=== PATIENT | female | born 1955 | race Caucasian/White ===

== ENCOUNTER 2018-09-01 19:23 | Inpatient (IN) | payer BC, OTHER ==
[2018-09-01 20:14] LABS: ABSOLUTE BASOPHILS # (AUTO) 0.1 10^3/uL (0.0-0.2); ABSOLUTE EOSINOPHILS # (AUTO) 0.1 10^3/uL (0.0-0.6); ABSOLUTE LYMPHOCYTES (AUTO) 1.3 10^3/uL (0.5-4.7); ABSOLUTE MONOCYTES (AUTO) 0.8 10^3/uL (0.1-1.4); ABSOLUTE NEUT (AUTO) 5.2 10^3/uL (1.7-8.2); BASOPHILS % (AUTO) 1.2 % (0-2); EOSINOPHILS % (AUTO) 0.8 % (0-6); HEMATOCRIT 40.2 % (36.0-47.0); HEMOGLOBIN 13.7 g/dL (12.0-15.5); MEAN CORPUSCULAR HEMOGLOBIN 28.2 pg (27.0-33.4); MEAN CORPUSCULAR HGB CONC 34.2 g/dL (32.0-36.0); MEAN CORPUSCULAR VOLUME 82 fl (80-97); MONOCYTES % (AUTO) 10.5 % (3-13); PLATELET COUNT 276 10^3/uL (150-450); RED BLOOD COUNT 4.87 10^6/uL (3.72-5.28); RED CELL DISTRIBUTION WIDTH 14.3 % (11.5-14.0); SEGMENTED NEUTROPHILS % (AUTO) 69.5 % (42-78); TOTAL CELLS COUNTED % (AUTO) 100 %; WHITE BLOOD COUNT 7.4 10^3/uL (4.0-10.5)
[2018-09-01 20:19] LABS: ALANINE AMINOTRANSFERASE 22 U/L (9-52); ALBUMIN 4.2 g/dL (3.5-5.0); ALKALINE PHOSPHATASE 90 U/L (38-126); ANION GAP 12 (5-19); ASPARTATE AMINO TRANSFERASE 14 U/L (14-36); BILIRUBIN,DIRECT 0.2 mg/dL (0.0-0.4); BILIRUBIN,TOTAL 0.5 mg/dL (0.2-1.3); BLOOD UREA NITROGEN 17 mg/dL (7-20); CALCIUM 9.1 mg/dL (8.4-10.2); CARBON DIOXIDE 28 mmol/L (22-30); CHLORIDE 104 mmol/L (98-107); CREATINE KINASE 59 U/L (30-135); GLUCOSE 116 mg/dL (75-110); SODIUM 143.7 mmol/L (137-145); TOTAL PROTEIN 6.9 g/dL (6.3-8.2)
--- NOTE | 2018-09-01 20:31 | RADIOLOGY REPORT (SQ) ---
EXAM DESCRIPTION: CT HEAD WITHOUT COMPLETED DATE/TIME: 09/01/2018 8:19 pm REASON FOR STUDY: confusion COMPARISON: None. TECHNIQUE: Axial images acquired through the brain without intravenous contrast. Images reviewed wi th bone, brain and subdural windows. Additional sagittal and coronal reconstructions were generated. Images stored on PACS. All CT scanners at this facility use dose modulation, iterative reconstruction, and/or weight based d osing when appropriate to reduce radiation dose to as low as reasonably achievable (ALARA). [facility]: Dose Right [facility]: CareDose [facility]: Dose Right [facility]: Teradose 4D [facility]: Smart Rontal Applications RADIATION DOSE: CT Rad equipment meets quality standard of care and radiation dose reduction techniq ues were employed. CTDIvol: 53.2 mGy. DLP: 937 mGy-cm. mGy. LIMITATIONS: None. FINDINGS: VENTRICLES: Normal size and contour. CEREBRUM: No masses. No hemorrhage. No midline shift. No evidence for acute infarction. Ill-define d small hypoattenuating area of the left frontal lobe. CEREBELLUM: No masses. No hemorrhage. No alteration of density. No evidence for acute infarction. EXTRAAXIAL SPACES: No fluid collections. No masses. ORBITS AND GLOBE: No intra- or extraconal masses. Normal contour of globe without masses. CALVARIUM: No fracture. PARANASAL SINUSES: No fluid or mucosal thickening. SOFT TISSUES: No mass or hematoma. OTHER: No other significant finding. IMPRESSION: Small hypoattenuating area of the left frontal lobe, concerning for acute infarct. EVIDENCE OF ACUTE STROKE: YES. LEFT MCA. COMMENT: This report was called to MARY COY MD at20:24 on 09/01/2018. Quality ID # [id number]: Final reports with documentation of one or more dose reduction techniques (e.g., Au tomated exposure control, adjustment of the mA and/or kV according to patient size, use of iterative reconstruction technique) TECHNICAL DOCUMENTATION: JOB ID: [id number] [employer]- All Rights Reserved Reading location - IP/workstation name: [email or web address]
--- NOTE | 2018-09-01 20:38 | RADIOLOGY REPORT (SQ) ---
EXAM DESCRIPTION: CHEST SINGLE VIEW COMPLETED DATE/TIME: 09/01/2018 8:29 pm REASON FOR STUDY: confusion COMPARISON: None. EXAM PARAMETERS: NUMBER OF VIEWS: One view. TECHNIQUE: Single frontal radiographic view of the chest acquired. RADIATION DOSE: NA LIMITATIONS: None. FINDINGS: LUNGS AND PLEURA: No opacities, masses or pneumothorax. No pleural effusion. MEDIASTINUM AND HILAR STRUCTURES: No masses. Contour normal. HEART AND VASCULAR STRUCTURES: Heart normal in size. Normal vasculature. BONES: No acute findings. HARDWARE: None in the chest. OTHER: No other significant finding. IMPRESSION: NO ACUTE RADIOGRAPHIC FINDING IN THE CHEST. TECHNICAL DOCUMENTATION: JOB ID: [id number] [employer]- All Rights Reserved Reading location - IP/workstation name: [email or web address]
[2018-09-01] MEDS ORDERED: ASPIRIN 81 MG TABLET, CHEWABLE PO ONE (20:49)
--- NOTE | 2018-09-01 20:56 | ER Document Report ---
ED General - General Chief Complaint: Trouble Talking Stated Complaint: CANT SPEAK Time Seen by Provider: 09/01/18 20:03 Cannot obtain history due to: Other - aphasia Notes: Patient is a 63-year-old female with no known chronic medical problems although does not follow with a physician who presents with 2 of her friends due to concerns of inability to speak for at least the past 2 days. History is extremely limited as the patient is a phasic. Family does not live locally. The 2 friends with her state that for the past 2 days she has been unable to speak and does seem confused or unable to understand what they are saying to her. They did elect to bring her to the hospital today for workup. No history of similar symptoms in the past. Nothing seems to improve or worsen her symptoms. TRAVEL OUTSIDE OF THE [place] IN LAST 30 DAYS: No - Related Data Allergies/Adverse Reactions: No Known Allergies Allergy (Unverified 09/01/18 20:16) Past Medical History - General Information source: Friend Cannot obtain history due to: Other - aphasia - Social History Smoking Status: Never Smoker Chew tobacco use (# tins/day): No Frequency of alcohol use: None Drug Abuse: None Lives with: Alone Family History: Reviewed & Not Pertinent Patient has suicidal ideation: No Patient has homicidal ideation: No Renal/ Medical History: Denies: Hx Peritoneal Dialysis Review of Systems - Review of Systems -: Yes ROS unobtainable due to patient's medical condition Physical Exam - Vital signs Vitals: Temp Pulse Resp BP Pulse Ox 98.9 F 95 18 173/013 H 96 09/01/18 19:29 09/01/18 19:29 09/01/18 19:29 09/01/18 19:29 09/01/18 19:29 Interpretation: Hypertensive Notes: PHYSICAL EXAMINATION: GENERAL: Resting in the bed comfortably. In no acute distress. HEAD: Atraumatic, normocephalic. EYES: Pupils equal round and reactive to light, extraocular movements intact, sclera anicteric, conjunctiva are normal. ENT: nares patent, oropharynx clear without exudates. Moist mucous membranes. NECK: Normal range of motion, supple without lymphadenopathy LUNGS: Breath sounds clear to auscultation bilaterally and equal. No wheezes rales or rhonchi. HEART: Regular rate and rhythm without murmurs ABDOMEN: Soft, nontender, normoactive bowel sounds. No guarding, no rebound. No masses appreciated. EXTREMITIES: Normal range of motion, no pitting or edema. No cyanosis. NEUROLOGICAL: Face symmetric. Tongue protrudes midline. Extraocular motions intact. Pupils are 2 mm and equally reactive. Dense expressive aphasia without any verbal content. Patient is unable to follow specific commands. For example she shows me her right hand as opposed to give me a thumbs up when commanded to do so. No apparent focal strength deficit although patient is again unable to follow through on comprehensive strength testing secondary to inability to comprehend instructions. PSYCH: Unable to assess secondary to aphasia SKIN: Warm, Dry, normal turgor, no rashes or lesions noted. Course - Re-evaluation Re-evalutation: 09/01/18 20:55 Patient presents with apparently 48 hours of inability to speak as well as apparent difficulty understanding what others are saying to her. On examination patient has no focal neurologic deficits but does have a dense expressive aphasia and partial receptive aphasia. She has difficulty following complex commands such as getting a thumbs up on her hand and said showing me her hand. She likewise cannot demonstrate a smile, instead opens her mouth or sticks out her tongue. She does not her head yes or no to questions although it is not entirely apparent whether or not she fully understands what is being said. CT scan of the head does show a stroke to the left frontal lobe which would account for her symptoms. The remainder of her labs are otherwise unremarkable. She is hypertensive although given that this is an acute ischemic stroke will allow for permissive hypertension. Patient has received a dose of aspirin here in the emergency department. I discussed this case with hospitalist on-call Dr. Torres who is accepted the patient for admission. - Vital Signs Vital signs: Temp Pulse Resp BP Pulse Ox 98.9 F 97 22 H 205/95 H 97 09/01/18 21:00 09/02/18 00:03 09/02/18 00:03 09/02/18 00:03 09/02/18 00:03 - Laboratory Result Diagrams: 09/01/18 19:55 09/01/18 19:55 Laboratory results interpreted by me: 09/01/18 09/01/18 09/01/18 19:27 19:55 19:55 RDW 14.3 H Glucose 116 H POC Glucose 114 H - Diagnostic Test Radiology reviewed: Image reviewed, Reports reviewed Radiology results interpreted by me: 09/02/18 01:39 Chest x-ray: No acute infiltrate or pneumothorax CT head: No acute intracranial bleed Discharge - Discharge Clinical Impression: Acute ischemic stroke, Aphasia Condition: Fair Disposition: ADMITTED INPATIENT Admitting Provider: Hospitalist Unit Admitted: Telemetry
--- NOTE | 2018-09-01 20:57 | EKG REPORT ---
SEVERITY:- ABNORMAL ECG - SINUS RHYTHM VENTRICULAR PREMATURE COMPLEX LEFT VENTRICULAR HYPERTROPHY : Confirmed by: Jero Granda MD 01-Sep-2018 20:57:12
[2018-09-01 21:33] LABS: VENOUS BLOOD BASE EXCESS 3.5 mmol/L; VENOUS BLOOD HCO3 28.9 mmol/L (20-32); VENOUS BLOOD PCO2 46.8 mmHg (35-63); VENOUS BLOOD PH 7.41 (7.30-7.42)
[2018-09-01] MEDS ORDERED: MAGNESIUM HYDROXIDE SUSP 30 ML UDCUP PO PRN (21:45)
[2018-09-01] MEDS ORDERED: ACETAMINOPHEN 325 MG TABLET PO PRN (21:45)
[2018-09-01] MEDS ORDERED: DEXTROSE 40% GEL 15 GM TUBE PO PRN ×2 (21:45)
[2018-09-01] MEDS ORDERED: GLUCAGON,HUMAN RECOMB 1 MG INJ SUBCUT PRN (21:45)
[2018-09-01] MEDS ORDERED: DEXTROSE 50%-WATER 25 GM/50 ML DISP.SYRIN IV PRN ×2 (21:45)
[2018-09-01] MEDS ORDERED: ATORVASTATIN CALCIUM 40 MG TABLET PO ONE (22:15)
[2018-09-01 22:19] LABS: APPEARANCE,URINE CLEAR; BILIRUBIN,URINE NEGATIVE (NEGATIVE); COLOR,URINE STRAW; GLUCOSE, URINE NEGATIVE (NEGATIVE); KETONES,URINE NEGATIVE (NEGATIVE); LEUKOCYTE ESTERASE,URINE NEGATIVE (NEGATIVE); NITRITE,URINE NEGATIVE (NEGATIVE); PROTEIN,URINE NEGATIVE (NEGATIVE); URINE SPECIFIC GRAVITY 1.012; UROBILINOGEN,URINE NEGATIVE mg/dL (<2.0)
[2018-09-01 22:22] LABS: INTERNATIONAL RATION (INR) 0.99; PROTHROMBIN TIME 13.5 SEC (11.4-15.4)
[2018-09-01 22:23] LABS: PARTIAL THROMBOPLASTIN TIME 33.7 SEC (23.5-35.8)
--- NOTE | 2018-09-01 23:06 | PDOC H&P ---
History of Present Illness Admission Date/PCP: 09/01/18 21:24 NONE Patient complains of: Problems speaking History of Present Illness: JON ANTONIO is a 63 year old female with no known medical conditions. Friend is at the bedside is the one giving me the information was the patient is unable to talk. Last time her friend spoke with her over the phone was last Sunday and the patient was at her regular state of health. Today friend called back and to all questions the patient was answering "ok", so she decided to call the [employer] department for a welfare check, when police arrived to her house she was answering all questions with the same word "ok", was decided to call EMS. Patient is ambulatory but unable to speak, follows commands and is evident that she can understand. Denies weakness, tingling or numbness on any extremity, denies vision problems, apparently patient has not been having any problems swallowing. Denies any history of a stroke in the past. Patient has been to a doctor a few months ago for an episode of acute bronchitis and she has been told that her blood pressure was high, upon arrival to our facility blood pressure was 205/95. The emergencyst stated that the patient has also receptive aphasia and had some difficulty with complex commands but to me she has been following every command properly and besides her frustration she feels to been unable to talk I did not find any receptive aphasia. CT scan of the head shows a stroke on the left frontal lobe. Patient will receive a dose of aspirin. Past Medical History Medical History: None Past Surgical History Past Surgical History: Reports: None Social History Smoking Status: Never Smoker Frequency of Alcohol Use: None Hx Recreational Drug Use: No Hx Prescription Drug Abuse: No Past Social History Note: Lives alone and her closest relative is her brother who lives out of the state. Her best friend is at the bedside. Family History Family History: Father and mother with history of cancer, both disease Parental Family History Reviewed: Yes - As above Children Family History Reviewed: Yes Sibling(s) Family History Reviewed.: Yes Medication/Allergy Allergies/Adverse Reactions: No Known Allergies Allergy (Unverified 09/01/18 20:16) Review of Systems Review of Systems: As outlined above, all others negative Physical Exam Vital Signs: Temp Pulse Resp BP Pulse Ox 93 22 H 205/95 H 97 09/01/18 19:36 09/01/18 19:36 09/01/18 19:36 09/01/18 19:36 Additional comments: General appearance: Well-developed, obese, alert and cooperative, and appears to be in no acute distress Head: Normocephalic Eyes: PEERL, EOMI, vision is grossly intact. Ears: External auditory canal and tympanic membranes clear, hearing grossly intact. Nose: No nasal discharge. Throat: Oral cavity and pharynx normal. No inflammation, swelling, exudate or lesions. Neck: Neck supple, nontender without lymphadenopathy, masses or thyromegaly. Cardiac: Normal S1 and S2. No S3, S4, systolic murmur present. Rhythm is regular. There is no cyanosis or pallor. Extremities are warm and well perfused. Capillary refill is less than 2 seconds. No carotid bruits. Lungs: Clear to auscultation and percussion without rales, rhonchi, wheezing or diminished breath sounds. Not using accessory muscles. Abdomen: Positive bowel sounds. Soft. Nondistended, nontender. No guarding or rebound. No masses. No hepatosplenomegaly Extremities: No significant deformity or joint abnormality. No edema. Peripheral pulses intact. No varicosities. Neurological: Cranial nerves II through XII grossly intact. Strength and sensation symmetric and intact throughout. Reflexes 2+ throughout. Expressive aphasia Skin: Skin normal color, texture and turgor with no lesions or eruptions, warm and dry. Psychiatric: The mental examination revealed the patient was oriented to person , place, and time. Results Laboratory Results: 09/01/18 22:02 Urine Color STRAW Urine Appearance CLEAR Urine pH 7.0 Ur Specific [place] 1.012 Urine Protein NEGATIVE Urine Glucose (UA) NEGATIVE Urine Ketones NEGATIVE Urine Blood NEGATIVE Urine Nitrite NEGATIVE Ur Leukocyte Esterase NEGATIVE Urine WBC (Auto) 1 Urine RBC (Auto) 1 EKG Comments: 09/01/18 09/01/18 09/01/18 19:27 19:55 19:55 WBC 7.4 RBC 4.87 Hgb 13.7 Hct 40.2 MCV 82 MCH 28.2 MCHC 34.2 RDW 14.3 H Plt Count 276 Seg Neutrophils % 69.5 Lymphocytes % 18.0 Monocytes % 10.5 Eosinophils % 0.8 Basophils % 1.2 Absolute Neutrophils 5.2 Absolute Lymphocytes 1.3 Absolute Monocytes 0.8 Absolute Eosinophils 0.1 Absolute Basophils 0.1 PT INR APTT VBG pH VBG pCO2 VBG HCO3 VBG Base Excess Sodium 143.7 Potassium 4.0 Chloride 104 Carbon Dioxide 28 Anion Gap 12 BUN 17 Creatinine 0.86 Est GFR ( Amer) > 60 Est GFR (Non-Af Amer) > 60 Glucose 116 H POC Glucose 114 H Lactic Acid Calcium 9.1 Total Bilirubin 0.5 Direct Bilirubin 0.2 AST 14 ALT 22 Alkaline Phosphatase 90 Creatine Kinase 59 Troponin I Total Protein 6.9 Albumin 4.2 Urine Color Urine Appearance Urine pH Ur Specific [place] Urine Protein Urine Glucose (UA) Urine Ketones Urine Blood Urine Nitrite Urine Bilirubin Urine Urobilinogen Ur Leukocyte Esterase Urine WBC (Auto) Urine RBC (Auto) Squamous Epi Cells Auto Urine Mucus (Auto) Urine Ascorbic Acid 09/01/18 09/01/18 09/01/18 19:55 20:38 21:18 WBC RBC Hgb Hct MCV MCH MCHC RDW Plt Count Seg Neutrophils % Lymphocytes % Monocytes % Eosinophils % Basophils % Absolute Neutrophils Absolute Lymphocytes Absolute Monocytes Absolute Eosinophils Absolute Basophils PT INR APTT VBG pH 7.41 VBG pCO2 46.8 VBG HCO3 28.9 VBG Base Excess 3.5 Sodium Potassium Chloride Carbon Dioxide Anion Gap BUN Creatinine Est GFR ( Amer) Est GFR (Non-Af Amer) Glucose POC Glucose Lactic Acid 1.2 Calcium Total Bilirubin Direct Bilirubin AST ALT Alkaline Phosphatase Creatine Kinase Troponin I 0.019 Total Protein Albumin Urine Color Urine Appearance Urine pH Ur Specific [place] Urine Protein Urine Glucose (UA) Urine Ketones Urine Blood Urine Nitrite Urine Bilirubin Urine Urobilinogen Ur Leukocyte Esterase Urine WBC (Auto) Urine RBC (Auto) Squamous Epi Cells Auto Urine Mucus (Auto) Urine Ascorbic Acid 09/01/18 09/01/18 21:18 22:02 WBC RBC Hgb Hct MCV MCH MCHC RDW Plt Count Seg Neutrophils % Lymphocytes % Monocytes % Eosinophils % Basophils % Absolute Neutrophils Absolute Lymphocytes Absolute Monocytes Absolute Eosinophils Absolute Basophils PT 13.5 INR 0.99 APTT 33.7 VBG pH VBG pCO2 VBG HCO3 VBG Base Excess Sodium Potassium Chloride Carbon Dioxide Anion Gap BUN Creatinine Est GFR ( Amer) Est GFR (Non-Af Amer) Glucose POC Glucose Lactic Acid Calcium Total Bilirubin Direct Bilirubin AST ALT Alkaline Phosphatase Creatine Kinase Troponin I Total Protein Albumin Urine Color STRAW Urine Appearance CLEAR Urine pH 7.0 Ur Specific [place] 1.012 Urine Protein NEGATIVE Urine Glucose (UA) NEGATIVE Urine Ketones NEGATIVE Urine Blood NEGATIVE Urine Nitrite NEGATIVE Urine Bilirubin NEGATIVE Urine Urobilinogen NEGATIVE Ur Leukocyte Esterase NEGATIVE Urine WBC (Auto) 1 Urine RBC (Auto) 1 Squamous Epi Cells Auto 1 Urine Mucus (Auto) RARE Urine Ascorbic Acid NEGATIVE EKG with normal sinus rhythm at 92 bpm, some PVCs. Impressions: Chest X-Ray 09/01/18 20:04 IMPRESSION: NO ACUTE RADIOGRAPHIC FINDING IN THE CHEST. Head CT 09/01/18 20:04 IMPRESSION: Small hypoattenuating area of the left frontal lobe, concerning for acute infarct. EVIDENCE OF ACUTE STROKE: YES. LEFT MCA. Assessment & Plan - Diagnosis (1) Acute ischemic stroke Is this a current diagnosis for this admission?: Yes Plan: Acute ischemic stroke in the left frontal area with expressive aphasia. Likely secondary to her uncontrolled hypertension, at this point she will have permissive hypertension, likely she will go home with BP meds, aspirin and statins which has been ordered. Telemetry monitoring, neuro checks every 4 hours, PT, OT and swallow evaluation. Carotid ultrasound and echocardiogram. Lipid panel and hemoglobin A1c in the morning. MRI of the brain. (2) Hypertension Is this a current diagnosis for this admission?: Yes Plan: Patient probably has had hypertension for a long time but as she does not follow with any primary care physician has not been diagnosis and patient has not been placed on any BP meds. For now permissive hypertension with IV labetalol as needed (3) DVT prophylaxis Is this a current diagnosis for this admission?: Yes Plan: Lovenox - Time Time Spent: 50 to 70 Minutes - Inpatient Certification Based on my medical assessment, after consideration of the patient's comorbidities, presenting symptoms, or acuity I expect that the services needed warrant INPATIENT care.: Yes Medical Necessity: Risk of Complication if Not Cared For in Hospital - Worsening viscera with incapacity - Plan Summary Plan Summary: Case discussed with patient and her friend at the bedside, agree with plan.
[2018-09-02] MEDS: NORMAL SALINE 1000 ML 1,000 ML IV PRN ×2 (00:23→14:42)
[2018-09-02] MEDS: ATORVASTATIN CALCIUM 40 MG TABLET PO SCH ×2 (00:23→21:11)
[2018-09-02 08:40] LABS: HEMATOCRIT 39.2 % (36.0-47.0); HEMOGLOBIN 13.4 g/dL (12.0-15.5); MEAN CORPUSCULAR HEMOGLOBIN 28.2 pg (27.0-33.4); MEAN CORPUSCULAR HGB CONC 34.2 g/dL (32.0-36.0); MEAN CORPUSCULAR VOLUME 82 fl (80-97); PLATELET COUNT 263 10^3/uL (150-450); RED BLOOD COUNT 4.76 10^6/uL (3.72-5.28); RED CELL DISTRIBUTION WIDTH 14.2 % (11.5-14.0)
[2018-09-02 08:55] LABS: ALANINE AMINOTRANSFERASE 17 U/L (9-52); ALBUMIN 3.7 g/dL (3.5-5.0); ALKALINE PHOSPHATASE 75 U/L (38-126); ANION GAP 10 (5-19); ASPARTATE AMINO TRANSFERASE 13 U/L (14-36); BILIRUBIN,DIRECT 0.2 mg/dL (0.0-0.4); BILIRUBIN,TOTAL 0.8 mg/dL (0.2-1.3); BLOOD UREA NITROGEN 14 mg/dL (7-20); CARBON DIOXIDE 28 mmol/L (22-30); CHLORIDE 105 mmol/L (98-107); CHOLESTEROL 144.26 mg/dL (0-200); GLUCOSE 107 mg/dL (75-110); POTASSIUM 4.1 mmol/L (3.6-5.0); SODIUM 143.1 mmol/L (137-145); TOTAL PROTEIN 6.1 g/dL (6.3-8.2); TRIGLYCERIDES 83 mg/dL (<150)
[2018-09-02 09:06] LABS: DIRECT LDL 93 mg/dL (<100)
--- NOTE | 2018-09-02 09:52 | RADIOLOGY REPORT (SQ) ---
EXAM DESCRIPTION: MRI HEAD WITHOUT COMPLETED DATE/TIME: 09/02/2018 9:36 am REASON FOR STUDY: Acute stroke COMPARISON: CT brain 09/01/2018 TECHNIQUE: Multiplanar imaging includes non-contrasted T1, T2, FLAIR, and diffusion with ADC map seq uences. Images stored on PACS. LIMITATIONS: None. FINDINGS: ANATOMY: No developmental anomalies. Normal vascular flow voids. Pituitary fossa normal. CSF SPACES: Normal in size and contour. No hemorrhage. CEREBRUM: Diffusion-weighted images are positive for a small cortical and subcortical white matter in farct over the left frontal cortex and subcortical white matter in the perisylvian region. No superi mposed acute hemorrhage. Minimal local mass effect with sulcal effacement. This is likely greater t yuan 24 hours old, given that this area was low-attenuation on CT 09/01/2018, 2012 hours. This finding was discussed with Dr. Roland, 0940 hours 09/02/2018. Remainder of the cerebral hemispheres demonstrate moderate small vessel ischemic change in the bifron rivka and biparietal white matter. No acute intracranial hemorrhage, mass effect, or midline shift. POSTERIOR FOSSA: Moderate pontine chronic small vessel ischemic change with increased signal on FLAIR images. No MR evidence of acute posterior fossa ischemic change or intracranial hemorrhage/ mass ef fect or midline shift. T2 weighted images demonstrate that the internal auditory canals and inner ea r structures are unremarkable. DIFFUSION IMAGING: Positive for small cortical and subcortical white matter infarct over the left fro ntal perisylvian region ORBITS: No masses. Globes normal. PARANASAL SINUSES: No fluid levels. Mucosa normal. OTHER: No other significant finding. IMPRESSION: Diffusion-weighted images are positive for small cortical and subcortical white matter i nfarct in the left patient greater than 24 hours old, low attenuation is seen in this area on prior C T last night. EVIDENCE OF ACUTE STROKE: YES COMMENT: Pertinent findings on the imaging study reported as a CRITICAL RESULT to DOMINIC BLACK at09:4 0 on 09/02/2018. Category of Critical Result: Positive DIFFUSION, ACUTE STROKE TECHNICAL DOCUMENTATION: JOB ID: [id number] [employer]- All Rights Reserved Reading location - IP/workstation name: [email or web address]
[2018-09-02] MEDS: ENOXAPARIN SODIUM INJ 40 MG/0.4 ML DISP.SYRIN SUBCUT SCH (10:49)
[2018-09-02] MEDS: PANTOPRAZOLE SODIUM 40 MG VIAL IV SCH (10:50)
[2018-09-02] MEDS: ASPIRIN 81 MG TABLET, ENT COATED PO SCH (10:50)
--- NOTE | 2018-09-02 14:15 | RADIOLOGY REPORT (SQ) ---
EXAM DESCRIPTION: CAROTID DOPPLER COMPLETED DATE/TIME: 09/02/2018 2:00 pm REASON FOR STUDY: CVA COMPARISON: None. TECHNIQUE: Grayscale ultrasound, Doppler velocity and spectra, and color Doppler images acquired of the extra-cranial carotid and vertebral arteries. Images stored on PACS. LIMITATIONS: None. FINDINGS: RIGHT CAROTID CCA Velocities: Within normal limits. ICA Velocities Peak systolic 104 cm m/s. End diastolic 36 cm/s. Proximal ICA/CCA peak systolic ratio 1.6 Spectra normal. No significant plaque. LEFT CAROTID CCA Velocities: Within normal limits. ICA Velocities Peak systolic 87 cm/s. End diastolic 31 cm/s. Proximal ICA/CCA peak systolic ratio 1.4. Spectra normal. No significant plaque. VERTEBRAL ARTERIES: Antegrade flow. Normal waveforms. SUBCLAVIAN ARTERIES: No finding. OTHER: No other significant finding. IMPRESSION: 1. NO HEMODYNAMICALLY SIGNIFICANT STENOSIS. COMMENT: Quality ID #[id number]: Velocity criteria are extrapolated from the diameter data as defined by t he Society of Radiologists in Ultrasound Consensus Conference. Radiology 2003: 229; 340-346. TECHNICAL DOCUMENTATION: JOB ID: [id number] [email or web address]- All Rights Reserved Reading location - IP/workstation name: [email or web address]
--- NOTE | 2018-09-02 16:40 | XCELERA REPORT ---
[address] [address] Transthoracic Echocardiogram Report Name: JON ANTONIO Age: 63 yrs Gender: Female : 1955 Patient Status: Inpatient Patient Location: [address] [place], [place] [id number] Study Date: 09/02/2018 09:44 AM Height: 67 in Weight: 265 lb BSA: 2.3 m2 Procedure: A two-dimensional transthoracic echocardiogram with color flow and Doppler was performed. Study Quality: Fair. Reason For Study: CVA History: CVA. Ordering Physician: GLENN VAZQUEZ Performed By: Izabella London Interpretation Summary There is no obvious cardiac source of embolus noted on this transthoracic echocardiogram. Follow-up with a FAB is suggested if cardiac source is still suspected. The left ventricle is normal in size. There is mild to moderate concentric left ventricular hypertrophy. LV EF is 65% Left ventricular systolic function is normal. Doppler measurements suggest impaired left ventricular relaxation, which is associated with grade I/IV or mild diastolic dysfunction The left ventricular wall motion is normal. There is no thrombus. The left atrial size is normal. The interatrial septum is intact with no evidence for an atrial septal defect. There is no Doppler evidence for an interatrial shunt There is no evidence of mitral valve prolapse. There is no mitral valve stenosis. There is a trace amount of mitral regurgitation There is mild aortic stenosis There is a peak gradient of 19 mm of Hg. No hemodynamically significant valvular aortic stenosis. No aortic regurgitation is present. There is no tricuspid stenosis. There is a mild amount of tricuspid regurgitation There is mild pulmonary hypertension by echo RVSP is 42 to 47 mm of Hg , with RA mean of 5 to 10. There is no pericardial effusion. There is no obvious cardiac source of embolus noted on this transthoracic echocardiogram. Follow-up with a FAB is suggested if cardiac source is still suspected MMode/2D Measurements & Calculations RVDd: 3.0 cm LVIDd: 4.5 cm FS: 34.7 % Ao root diam: 3.0 cm IVSd: 1.4 cm LVIDs: 2.9 cm EDV(Teich): 93.4 ml Ao root area: 7.1 cm2 LVPWd: 1.4 cm ESV(Teich): 33.6 ml LA dimension: 3.5 cm EF(Teich): 64.1 % Doppler Measurements & Calculations MV E max cedrick: MV P1/2t max cedrick: Ao V2 max: LV V1 max P.9 cm/sec 124.9 cm/sec 219.4 cm/sec 7.1 mmHg MV A max cedrick: MV P1/2t: 70.4 msec Ao max PG: LV V1 max: 130.3 cm/sec MVA(P1/2t): 3.1 cm2 19.2 mmHg 133.3 cm/sec MV E/A: 0.96 MV dec slope: 519.5 cm/sec2 MV dec time: 0.25 sec PA V2 max: TR max cedrick: MV P1/2t-pr_phl: 115.0 cm/sec 302.7 cm/sec 70.4 msec PA max P.3 mmHgTR max P.6 mmHg Left Ventricle The left ventricle is normal in size. There is mild to moderate concentric left ventricular hypertrophy. LV EF is 65%. Left ventricular systolic function is normal. Doppler measurements suggest impaired left ventricular relaxation, which is associated with grade I/IV or mild diastolic dysfunction. The left ventricular wall motion is normal. There is no thrombus. There is no ventricular septal defect visualized. Right Ventricle The right ventricle is not well visualized secondary to technical limitations. Atria Right atrium not well visualized secondary to technical limitations. The left atrial size is normal. The interatrial septum is intact with no evidence for an atrial septal defect. There is no Doppler evidence for an interatrial shunt. Mitral Valve There is no evidence of mitral valve prolapse. There is no vegetation seen on the mitral valve. There is no mitral valve stenosis. There is a trace amount of mitral regurgitation. Aortic Valve There is no aortic valvular vegetation. There is mild aortic stenosis. There is a peak gradient of 19 mm of Hg. There is no LVOT obstruction. No hemodynamically significant valvular aortic stenosis. No aortic regurgitation is present. Tricuspid Valve There is no tricuspid stenosis. There is a mild amount of tricuspid regurgitation. There is mild pulmonary hypertension by echo. RVSP is 42 to 47 mm of Hg , with RA mean of 5 to 10. Pulmonic Valve There is no pulmonic valvular stenosis. There is no pulmonic valvular regurgitation. Great Vessels The aortic root is normal size. The inferior vena cava appeared normal and decreased > 50% with respiration (RAP 5-10 mmHg). Effusions There is no pericardial effusion. : GLENN VAZQUEZ > Klaudia Brand
--- NOTE | 2018-09-02 16:40 | PDOC PROGRESS REPORT ---
Subjective Progress Note for:: 09/02/18 Subjective:: JON ANTONIO 64-year-old female no past medical history who was brought in by his neighbors for not being able to talk. A brain MRI confirmed the CT finding of left temporal lobe stroke. A 2D echo of the carotids were negative for any hemodynamic stenosis. 09/02/2018. On my encounter patient is comfortably sitting in her bed in no acute distress very pleasant and cooperative with physical examination but unfortunately she has expressive aphasia and all she can say is okay. She denies any pain, fever, chills, nausea, vomiting, diarrhea, constipation, chest pain, shortness of breath. Reason For Visit: ACUTE STROKE Physical Exam Vital Signs: Temp Pulse Resp BP Pulse Ox 98.6 F 87 20 166/79 H 98 09/02/18 14:59 09/02/18 16:00 09/02/18 16:00 09/02/18 16:00 09/02/18 16:00 Intake & Output 09/01/18 09/02/18 09/03/18 06:59 06:59 06:59 Intake Total 0 1236 Output Total 0 Balance 0 1236 Weight 119 kg 119 kg General appearance: PRESENT: no acute distress, cooperative, well-developed, well-nourished Head exam: PRESENT: atraumatic, normocephalic Respiratory exam: PRESENT: clear to auscultation osei. ABSENT: rales, rhonchi, wheezes Cardiovascular exam: PRESENT: RRR. ABSENT: diastolic murmur, rubs, systolic murmur GI/Abdominal exam: PRESENT: normal bowel sounds, soft. ABSENT: distended, guarding, mass, organolmegaly, rebound, tenderness Musculoskeletal exam: ABSENT: ambulatory, deformity, dislocation, full ROM, normal inspection, tenderness, other Neurological exam: PRESENT: alert, awake, reflexes normal, CN II-XII grossly intact, aphasic - Severe expressive aphasia.. ABSENT: motor sensory deficit Skin exam: PRESENT: dry, intact, warm. ABSENT: cyanosis, rash Results Laboratory Results: 09/02/18 07:46 09/02/18 07:46 09/01/18 09/02/18 09/02/18 22:02 07:46 07:46 WBC 7.0 RBC 4.76 Hgb 13.4 Hct 39.2 MCV 82 MCH 28.2 MCHC 34.2 RDW 14.2 H Plt Count 263 Sodium 143.1 Potassium 4.1 Chloride 105 Carbon Dioxide 28 Anion Gap 10 BUN 14 Creatinine 0.66 Est GFR ( Amer) > 60 Est GFR (Non-Af Amer) > 60 Glucose 107 Calcium 9.0 Total Bilirubin 0.8 AST 13 L ALT 17 Alkaline Phosphatase 75 Total Protein 6.1 L Albumin 3.7 Triglycerides 83 Cholesterol 144.26 LDL Cholesterol Direct 93 VLDL Cholesterol 17.0 HDL Cholesterol 45 Urine Color STRAW Urine Appearance CLEAR Urine pH 7.0 Ur Specific [place] 1.012 Urine Protein NEGATIVE Urine Glucose (UA) NEGATIVE Urine Ketones NEGATIVE Urine Blood NEGATIVE Urine Nitrite NEGATIVE Ur Leukocyte Esterase NEGATIVE Urine WBC (Auto) 1 Urine RBC (Auto) 1 09/02/18 09/02/18 09/02/18 02:15 07:46 14:10 Troponin I 0.020 0.018 0.013 Impressions: Chest X-Ray 09/01/18 20:04 IMPRESSION: NO ACUTE RADIOGRAPHIC FINDING IN THE CHEST. Head CT 09/01/18 20:04 IMPRESSION: Small hypoattenuating area of the left frontal lobe, concerning for acute infarct. EVIDENCE OF ACUTE STROKE: YES. LEFT MCA. Carotid Doppler Study 09/02/18 00:00 IMPRESSION: 1. NO HEMODYNAMICALLY SIGNIFICANT STENOSIS. Head MRI 09/02/18 00:00 IMPRESSION: Diffusion-weighted images are positive for small cortical and subcortical white matter infarct in the left patient greater than 24 hours old, low attenuation is seen in this area on prior CT last night. EVIDENCE OF ACUTE STROKE: YES Assessment & Plan - Diagnosis (1) Acute ischemic stroke Is this a current diagnosis for this admission?: Yes Plan: Left temporal lobe acute ischemic his stroke likely due to underlying uncontrolled hypertension. MRI positive for left temporal lobe infarct. A1c on admission is 5.5%. Troponin on admission 0.02-0.13. No acute EKG changes except for LVH and some PVCs. Patient is ambulatory and neurologically intact except for severe expressive a aphasia. PT OT consulted and signed off. Pending speech therapy evaluation. Carotid Doppler negative for any hemodynamically significant stenosis. Pending 2D echo. Continue aspirin, high intensity statin, optimize blood pressure. Plan is to discharge home with outpatient rehab once blood pressure is optimized. (2) Hypertension Is this a current diagnosis for this admission?: Yes Plan: Uncontrolled. Systolic blood pressure in 200s on admission. Today her blood pressure has been between 160 and 180. Continue IV labetalol as needed. Continue telemetry. Permissive hypertension for another 24 hours. (3) DVT prophylaxis Is this a current diagnosis for this admission?: Yes Plan: Patient is ambulatory. Continue DVT prophylaxis.
[2018-09-03] MEDS: LABETALOL HCL INJ 20 MG/4 ML DISP.SYRIN IV PRN ×2 (00:35→23:22)
[2018-09-03] MEDS: NORMAL SALINE 1000 ML 1,000 ML IV PRN (03:37)
[2018-09-03 06:49] LABS: ABSOLUTE BASOPHILS # (AUTO) 0.1 10^3/uL (0.0-0.2); ABSOLUTE EOSINOPHILS # (AUTO) 0.1 10^3/uL (0.0-0.6); ABSOLUTE LYMPHOCYTES (AUTO) 1.7 10^3/uL (0.5-4.7); ABSOLUTE MONOCYTES (AUTO) 0.6 10^3/uL (0.1-1.4); ABSOLUTE NEUT (AUTO) 5.7 10^3/uL (1.7-8.2); EOSINOPHILS % (AUTO) 1.3 % (0-6); HEMATOCRIT 39.3 % (36.0-47.0); HEMOGLOBIN 13.3 g/dL (12.0-15.5); LYMPHOCYTES % (AUTO) 20.4 % (13-45); MEAN CORPUSCULAR HEMOGLOBIN 27.9 pg (27.0-33.4); MEAN CORPUSCULAR HGB CONC 33.8 g/dL (32.0-36.0); MEAN CORPUSCULAR VOLUME 83 fl (80-97); MONOCYTES % (AUTO) 7.8 % (3-13); PLATELET COUNT 232 10^3/uL (150-450); RED BLOOD COUNT 4.75 10^6/uL (3.72-5.28); RED CELL DISTRIBUTION WIDTH 14.6 % (11.5-14.0); SEGMENTED NEUTROPHILS % (AUTO) 69.5 % (42-78); TOTAL CELLS COUNTED % (AUTO) 100 %; WHITE BLOOD COUNT 8.2 10^3/uL (4.0-10.5)
[2018-09-03 07:08] LABS: ALANINE AMINOTRANSFERASE 15 U/L (9-52); ALBUMIN 3.6 g/dL (3.5-5.0); ALKALINE PHOSPHATASE 77 U/L (38-126); ANION GAP 11 (5-19); ASPARTATE AMINO TRANSFERASE 12 U/L (14-36); BILIRUBIN,DIRECT 0.2 mg/dL (0.0-0.4); BILIRUBIN,TOTAL 0.7 mg/dL (0.2-1.3); BLOOD UREA NITROGEN 13 mg/dL (7-20); CALCIUM 8.9 mg/dL (8.4-10.2); CARBON DIOXIDE 26 mmol/L (22-30); CHLORIDE 106 mmol/L (98-107); GLUCOSE 112 mg/dL (75-110); POTASSIUM 4.1 mmol/L (3.6-5.0); SODIUM 142.6 mmol/L (137-145); TOTAL PROTEIN 6.1 g/dL (6.3-8.2)
[2018-09-03] MEDS: CARVEDILOL 3.125 MG TABLET PO SCH ×2 (10:13→21:15)
[2018-09-03] MEDS: ASPIRIN 81 MG TABLET, ENT COATED PO SCH (10:14)
[2018-09-03] MEDS: ENOXAPARIN SODIUM INJ 40 MG/0.4 ML DISP.SYRIN SUBCUT SCH (10:14)
[2018-09-03] MEDS: PANTOPRAZOLE SODIUM 40 MG VIAL IV SCH (10:15)
--- NOTE | 2018-09-03 18:11 | PDOC PROGRESS REPORT ---
Subjective Progress Note for:: 09/03/18 Subjective:: JON ANTONIO 64-year-old female no past medical history who was brought in by his neighbors for not being able to talk. A brain MRI confirmed the CT finding of left temporal lobe stroke. A 2D echo of the carotids were negative for any hemodynamic stenosis. 09/02/2018. On my encounter patient is comfortably sitting in her bed in no acute distress very pleasant and cooperative with physical examination but unfortunately she has expressive aphasia and all she can say is okay. She denies any pain, fever, chills, nausea, vomiting, diarrhea, constipation, chest pain, shortness of breath. 08/04/2018. No acute events overnight. On my encounter patient is sitting comfortably in her bed very pleasant and cooperative with physical examination. Her aphasia has improved mildly, she was able to write her name and date of the week on the paper. Seems like she has a good understanding of her medical condition unfortunately could not express it due to her expressive aphasia. He denies any fever, chills, nausea, vomiting, diarrhea, constipation. P.o. tolerant having normal bowel and bladder function. She is ambulatory. Her blood pressure still not optimized, started on carvedilol low-dose today and will titrate up as tolerated. Reason For Visit: ACUTE STROKE Physical Exam Vital Signs: Temp Pulse Resp BP Pulse Ox 98.4 F 81 16 161/77 H 100 09/03/18 15:27 09/03/18 15:27 09/03/18 15:27 09/03/18 15:27 09/03/18 15:27 Intake & Output 09/02/18 09/03/18 09/04/18 06:59 06:59 06:59 Intake Total 0 2831 1000 Output Total 0 0 Balance 0 2831 1000 Weight 119 kg 118.3 kg General appearance: PRESENT: no acute distress, well-developed, well-nourished Head exam: PRESENT: atraumatic, normocephalic Respiratory exam: PRESENT: clear to auscultation osei. ABSENT: rales, rhonchi, wheezes Cardiovascular exam: PRESENT: RRR. ABSENT: diastolic murmur, rubs, systolic murmur GI/Abdominal exam: PRESENT: normal bowel sounds, soft. ABSENT: distended, guarding, mass, organolmegaly, rebound, tenderness Extremities exam: PRESENT: full ROM. ABSENT: calf tenderness, clubbing, pedal edema Neurological exam: PRESENT: alert, awake, oriented to person, oriented to place , oriented to time, oriented to situation, CN II-XII grossly intact, aphasic. ABSENT: motor sensory deficit Skin exam: PRESENT: dry, intact, warm. ABSENT: cyanosis, rash Results Laboratory Results: 09/03/18 05:40 09/03/18 05:40 09/03/18 09/03/18 05:40 05:40 WBC 8.2 RBC 4.75 Hgb 13.3 Hct 39.3 MCV 83 MCH 27.9 MCHC 33.8 RDW 14.6 H Plt Count 232 Seg Neutrophils % 69.5 Lymphocytes % 20.4 Monocytes % 7.8 Eosinophils % 1.3 Basophils % 1.0 Absolute Neutrophils 5.7 Absolute Lymphocytes 1.7 Absolute Monocytes 0.6 Absolute Eosinophils 0.1 Absolute Basophils 0.1 Sodium 142.6 Potassium 4.1 Chloride 106 Carbon Dioxide 26 Anion Gap 11 BUN 13 Creatinine 0.69 Est GFR ( Amer) > 60 Est GFR (Non-Af Amer) > 60 Glucose 112 H Calcium 8.9 Total Bilirubin 0.7 AST 12 L ALT 15 Alkaline Phosphatase 77 Total Protein 6.1 L Albumin 3.6 09/02/18 09/02/18 09/02/18 02:15 07:46 14:10 Troponin I 0.020 0.018 0.013 Impressions: Chest X-Ray 09/01/18 20:04 IMPRESSION: NO ACUTE RADIOGRAPHIC FINDING IN THE CHEST. Head CT 09/01/18 20:04 IMPRESSION: Small hypoattenuating area of the left frontal lobe, concerning for acute infarct. EVIDENCE OF ACUTE STROKE: YES. LEFT MCA. Carotid Doppler Study 09/02/18 00:00 IMPRESSION: 1. NO HEMODYNAMICALLY SIGNIFICANT STENOSIS. Head MRI 09/02/18 00:00 IMPRESSION: Diffusion-weighted images are positive for small cortical and subcortical white matter infarct in the left patient greater than 24 hours old, low attenuation is seen in this area on prior CT last night. EVIDENCE OF ACUTE STROKE: YES Assessment & Plan - Diagnosis (1) Acute ischemic stroke Is this a current diagnosis for this admission?: Yes Plan: Left temporal lobe acute ischemic his stroke likely due to underlying uncontrolled hypertension. MRI positive for left temporal lobe infarct. A1c on admission is 5.5%. Troponin on admission 0.02-0.13. No acute EKG changes except for LVH and some PVCs. Neurologically intact, mild improvement of expressive aphasia. PT OT consulted and signed off. Pending speech therapy evaluation. Carotid Doppler negative for any hemodynamically significant stenosis. 2D echo negative for any thromboembolic source.. Continue aspirin, high intensity statin, optimize blood pressure. Plan is to discharge home with outpatient rehab once blood pressure is optimized. (2) Hypertension Is this a current diagnosis for this admission?: Yes Plan: Improving but not optimized. Systolic blood pressure in 200s on admission. Today her blood pressure has been between 160s. Continue IV labetalol as needed. Started on Coreg 3.25. Will increase to 6.25 for tomorrow. Can be safely discharged home once blood pressure is optimize. (3) DVT prophylaxis Is this a current diagnosis for this admission?: Yes Plan: Low molecular weight heparin. Encourage ambulation.
[2018-09-03] MEDS: ATORVASTATIN CALCIUM 40 MG TABLET PO SCH (21:15)
[2018-09-04] MEDS ORDERED: CARVEDILOL 6.25 MG TABLET PO SCH (10:00)
[2018-09-04] MEDS: CARVEDILOL 12.5 MG TABLET PO SCH ×2 (10:36→21:28)
[2018-09-04] MEDS: ENOXAPARIN SODIUM INJ 40 MG/0.4 ML DISP.SYRIN SUBCUT SCH (10:36)
[2018-09-04] MEDS: ASPIRIN 81 MG TABLET, ENT COATED PO SCH (10:36)
[2018-09-04] MEDS: PANTOPRAZOLE SODIUM 40 MG VIAL IV SCH (10:36)
--- NOTE | 2018-09-04 10:49 | PDOC PROGRESS REPORT ---
Subjective Progress Note for:: 09/04/18 Subjective:: JON ANTONIO 64-year-old female no past medical history who was brought in by his neighbors for not being able to talk. A brain MRI confirmed the CT finding of left temporal lobe stroke. A 2D echo of the carotids were negative for any hemodynamic stenosis. 08/03/2018. On my encounter patient is comfortably sitting in her bed in no acute distress very pleasant and cooperative with physical examination but unfortunately she has expressive aphasia and all she can say is okay. She denies any pain, fever, chills, nausea, vomiting, diarrhea, constipation, chest pain, shortness of breath. 08/04/2018. No acute events overnight. On my encounter patient is sitting comfortably in her bed very pleasant and cooperative with physical examination. Her aphasia has improved mildly, she was able to write her name and date of the week on the paper. Seems like she has a good understanding of her medical condition unfortunately could not express it due to her expressive aphasia. He denies any fever, chills, nausea, vomiting, diarrhea, constipation. P.o. tolerant having normal bowel and bladder function. She is ambulatory. Her blood pressure still not optimized, started on carvedilol low-dose today and will titrate up as tolerated. 08/05/2018. No acute events overnight. On my encounter patient is sitting in her chair not in any acute distress, very pleasant, very cooperative with physical examination. She has significant improvement of her expressive aphasia but she still cannot hold a conversation just answering in short sentences. She stating that she wants to go home tomorrow because not feel safe yet to go home. Reason For Visit: ACUTE STROKE Physical Exam Vital Signs: Temp Pulse Resp BP Pulse Ox 98.0 F 79 20 173/91 H 96 09/04/18 08:21 09/04/18 08:21 09/04/18 08:21 09/04/18 08:21 09/04/18 08:21 Intake & Output 09/03/18 09/04/18 09/05/18 06:59 06:59 06:59 Intake Total 2831 2053 Output Total 0 0 Balance 2832053 Weight 118.3 kg 118 kg General appearance: PRESENT: no acute distress, well-developed, well-nourished Respiratory exam: PRESENT: clear to auscultation osei. ABSENT: rales, rhonchi, wheezes Cardiovascular exam: PRESENT: RRR. ABSENT: diastolic murmur, rubs, systolic murmur GI/Abdominal exam: PRESENT: normal bowel sounds, soft. ABSENT: distended, guarding, mass, organolmegaly, rebound, tenderness Neurological exam: PRESENT: aphasic - Expressive aphasia Results Laboratory Results: 09/03/18 05:40 09/03/18 05:40 09/02/18 09/02/18 09/02/18 02:15 07:46 14:10 Troponin I 0.020 0.018 0.013 Impressions: Chest X-Ray 09/01/18 20:04 IMPRESSION: NO ACUTE RADIOGRAPHIC FINDING IN THE CHEST. Head CT 09/01/18 20:04 IMPRESSION: Small hypoattenuating area of the left frontal lobe, concerning for acute infarct. EVIDENCE OF ACUTE STROKE: YES. LEFT MCA. Carotid Doppler Study 09/02/18 00:00 IMPRESSION: 1. NO HEMODYNAMICALLY SIGNIFICANT STENOSIS. Head MRI 09/02/18 00:00 IMPRESSION: Diffusion-weighted images are positive for small cortical and subcortical white matter infarct in the left patient greater than 24 hours old, low attenuation is seen in this area on prior CT last night. EVIDENCE OF ACUTE STROKE: YES Assessment & Plan - Diagnosis (1) Acute ischemic stroke Is this a current diagnosis for this admission?: Yes Plan: Left temporal lobe acute ischemic his stroke likely due to underlying uncontrolled hypertension. MRI positive for left temporal lobe infarct. A1c on admission is 5.5%. Troponin on admission 0.02-0.13. No acute EKG changes except for LVH and some PVCs. Neurologically intact, mild improvement of expressive aphasia. PT OT consulted and signed off. Pending speech therapy evaluation. Carotid Doppler negative for any hemodynamically significant stenosis. 2D echo negative for any thromboembolic source.. Continue aspirin, high intensity statin, optimize blood pressure. Plan is to discharge home with outpatient rehab once blood pressure is optimized. (2) Hypertension Is this a current diagnosis for this admission?: Yes Plan: Improving but not optimized. Systolic blood pressure in 200s on admission. Today her blood pressure has been between 160s. Continue IV labetalol as needed. Increase Coreg to 12.5 today. Patient would like to be discharged tomorrow. (3) DVT prophylaxis Is this a current diagnosis for this admission?: Yes (4) Obesity (BMI 35.0-39.9 without comorbidity) Is this a current diagnosis for this admission?: Yes Plan: Diet and lifestyle modification.
[2018-09-04] MEDS ORDERED: LISINOPRIL 5 MG TABLET PO ONE (17:00)
[2018-09-04] MEDS: ATORVASTATIN CALCIUM 40 MG TABLET PO SCH (21:28)
[2018-09-05] MEDS: ASPIRIN 81 MG TABLET, ENT COATED PO SCH (09:03)
[2018-09-05] MEDS: ENOXAPARIN SODIUM INJ 40 MG/0.4 ML DISP.SYRIN SUBCUT SCH (09:03)
[2018-09-05] MEDS: CARVEDILOL 12.5 MG TABLET PO SCH ×2 (09:03→21:36)
[2018-09-05] MEDS ORDERED: LISINOPRIL 5 MG TABLET PO SCH ×2 (10:00→17:28)
--- NOTE | 2018-09-05 11:22 | PDOC DISCHARGE SUMMARY ---
General - Admit/Disc Date/PCP Admission Date/Primary Care Provider: 09/01/18 21:24 Discharge Date: 09/05/18 - Discharge Diagnosis (1) Acute ischemic stroke Is this a current diagnosis for this admission?: Yes (2) Hypertension Is this a current diagnosis for this admission?: Yes (3) DVT prophylaxis Is this a current diagnosis for this admission?: Yes (4) Obesity (BMI 35.0-39.9 without comorbidity) Is this a current diagnosis for this admission?: Yes - Additional Information Home Medications: Multivitamin/Iron/Folic Acid [Centrum Adults Tablet] 1 tab PO DAILY 09/02/18 History of Present Illness History of Present Illness: JON ANTONIO 64-year-old female no past medical history who was brought in by his neighbors for not being able to talk. A brain MRI confirmed the CT finding of left temporal lobe stroke. A 2D echo of the carotids were negative for any hemodynamic stenosis. 08/03/2018. On my encounter patient is comfortably sitting in her bed in no acute distress very pleasant and cooperative with physical examination but unfortunately she has expressive aphasia and all she can say is okay. She denies any pain, fever, chills, nausea, vomiting, diarrhea, constipation, chest pain, shortness of breath. 08/04/2018. No acute events overnight. On my encounter patient is sitting comfortably in her bed very pleasant and cooperative with physical examination. Her aphasia has improved mildly, she was able to write her name and date of the week on the paper. Seems like she has a good understanding of her medical condition unfortunately could not express it due to her expressive aphasia. He denies any fever, chills, nausea, vomiting, diarrhea, constipation. P.o. tolerant having normal bowel and bladder function. She is ambulatory. Her blood pressure still not optimized, started on carvedilol low-dose today and will titrate up as tolerated. 08/05/2018. No acute events overnight. On my encounter patient is sitting in her chair not in any acute distress, very pleasant, very cooperative with physical examination. She has significant improvement of her expressive aphasia but she still cannot hold a conversation just answering in short sentences. She stating that she wants to go home tomorrow because today she does not have a ride to home and she does not feel safe yet to go home. Hospital Course Hospital Course: (1) Acute ischemic stroke Neurologically intact except for expressive aphasia which significantly improved. She is ambulatory, p.o. tlerant, having normal bowel and bladder movement. Left temporal lobe acute ischemic his stroke likely due to underlying uncontrolled hypertension. A1c on admission is 5.5%. Troponin on admission 0.02-0.13. No acute EKG changes except for LVH and some PVCs. PT OT consulted and signed off. Patient was discharged home to live with a friend which was arranged by her friends. She was given outpatient speech therapy to follow-up. Her friend she also had a PCP to follow-up as soon as she is discharged. 09/02/2018. 2D echo showed no obvious cardiac source of embolus ejection fraction was 65% with mild to moderate concentric left ventricular hypertrophy. 09/02/2018. MRI brain diffusion weighted images was positive for small cortical and subcortical white matter infarction in the left temporal lobe. 09/02/2018. Carotid Doppler did not show any hemodynamically significant stenosis. 09/01/2018. CT head showed small hypoattenuating area of the left frontal lobe, left MCA. She was started on aspirin, high intensity statin and blood pressure was slowly optimized. (2) Hypertension Slowly optimize. Systolic blood pressure in 200s on admission. Pressure on the day of discharge 130s. Vision was initially started on low-dose Coreg and titrated up to 25 mg twice daily. Lisinopril 5 mg daily was added on 09/05/2018. (3) DVT prophylaxis (4) Obesity (BMI 35.0-39.9 without comorbidity) Diet and lifestyle modification. Patient was counseled to lose weight which may help her underlying hypertension. Physical Exam Vital Signs: Temp Pulse Resp BP Pulse Ox 98.6 F 109 H 20 137/59 H 97 09/05/18 08:03 09/05/18 10:07 09/05/18 08:03 09/05/18 10:07 09/05/18 08:03 Intake & Output 09/04/18 09/05/18 09/06/18 06:59 06:59 06:59 Intake Total 2053 918 Output Total 0 2 Balance 2053 916 Weight 118 kg 118.1 kg General appearance: PRESENT: no acute distress, well-developed, well-nourished Head exam: PRESENT: atraumatic, normocephalic Eye exam: PRESENT: conjunctiva pink, EOMI, PERRLA. ABSENT: scleral icterus Ear exam: PRESENT: normal external ear exam Mouth exam: PRESENT: moist, tongue midline Neck exam: ABSENT: carotid bruit, JVD, lymphadenopathy, thyromegaly Respiratory exam: PRESENT: clear to auscultation osei. ABSENT: rales, rhonchi, wheezes Cardiovascular exam: PRESENT: RRR. ABSENT: diastolic murmur, rubs, systolic murmur Pulses: PRESENT: normal dorsalis pedis pul Vascular exam: PRESENT: normal capillary refill GI/Abdominal exam: PRESENT: normal bowel sounds, soft. ABSENT: distended, guarding, mass, organolmegaly, rebound, tenderness Rectal exam: PRESENT: deferred Extremities exam: PRESENT: full ROM. ABSENT: calf tenderness, clubbing, pedal edema Neurological exam: PRESENT: alert, awake, oriented to person, oriented to place , oriented to time, oriented to situation, CN II-XII grossly intact. ABSENT: motor sensory deficit Psychiatric exam: PRESENT: appropriate affect, normal mood. ABSENT: homicidal ideation, suicidal ideation Skin exam: PRESENT: dry, intact, warm. ABSENT: cyanosis, rash Results Laboratory Results: 09/03/18 05:40 09/03/18 05:40 09/02/18 09/02/18 09/02/18 02:15 07:46 14:10 Troponin I 0.020 0.018 0.013 Impressions: Chest X-Ray 09/01/18 20:04 IMPRESSION: NO ACUTE RADIOGRAPHIC FINDING IN THE CHEST. Head CT 09/01/18 20:04 IMPRESSION: Small hypoattenuating area of the left frontal lobe, concerning for acute infarct. EVIDENCE OF ACUTE STROKE: YES. LEFT MCA. Carotid Doppler Study 09/02/18 00:00 IMPRESSION: 1. NO HEMODYNAMICALLY SIGNIFICANT STENOSIS. Head MRI 09/02/18 00:00 IMPRESSION: Diffusion-weighted images are positive for small cortical and subcortical white matter infarct in the left patient greater than 24 hours old, low attenuation is seen in this area on prior CT last night. EVIDENCE OF ACUTE STROKE: YES Qualifiers - * PATIENT BEING DISCHARGED WITH ANY OF THE FOLLOWING DIAGNOSIS: No VTE patient discharged on overlapping Therapy?: Yes
[2018-09-05] MEDS ORDERED: LISINOPRIL 5 MG TABLET PO ONE (13:30)
[2018-09-05] MEDS ORDERED: LISINOPRIL 10 MG TABLET PO ONE (16:00)
[2018-09-05] MEDS: AMLODIPINE BESYLATE 5 MG TABLET PO SCH (16:23)
--- NOTE | 2018-09-05 17:28 | PDOC PROGRESS REPORT ---
Subjective Progress Note for:: 09/05/18 Subjective:: JON ANTONIO 64-year-old female no past medical history who was brought in by his neighbors for not being able to talk. A brain MRI confirmed the CT finding of left temporal lobe stroke. A 2D echo of the carotids were negative for any hemodynamic stenosis. 09/02/2018. On my encounter patient is comfortably sitting in her bed in no acute distress very pleasant and cooperative with physical examination but unfortunately she has expressive aphasia and all she can say is okay. She denies any pain, fever, chills, nausea, vomiting, diarrhea, constipation, chest pain, shortness of breath. 09/03/2018. No acute events overnight. On my encounter patient is sitting comfortably in her bed very pleasant and cooperative with physical examination. Her aphasia has improved mildly, she was able to write her name and date of the week on the paper. Seems like she has a good understanding of her medical condition unfortunately could not express it due to her expressive aphasia. He denies any fever, chills, nausea, vomiting, diarrhea, constipation. P.o. tolerant having normal bowel and bladder function. She is ambulatory. Her blood pressure still not optimized, started on carvedilol low-dose today and will titrate up as tolerated. 09/04/2018. No acute events overnight. On my encounter patient is sitting in her chair not in any acute distress, very pleasant, very cooperative with physical examination. She has significant improvement of her expressive aphasia but she still cannot hold a conversation just answering in short sentences. She stating that she wants to go home tomorrow because today she does not have a ride to home and she does not feel safe yet to go home. 09/05/2018. No acute events overnight. On my encounter patient is comfortably sitting in her recliner and her aphasia has improved greatly. She is p.o. tolerant ambulatory having normal bowel and bladder movements. She was going to be transferred today to go and live with a friend unfortunately her blood pressure still not optimized. Plan is to discharge her tomorrow if blood pressure is stable. Reason For Visit: ACUTE STROKE Physical Exam Vital Signs: Temp Pulse Resp BP Pulse Ox 98.4 F 71 16 148/70 H 98 09/05/18 16:16 09/05/18 16:16 09/05/18 16:16 09/05/18 16:16 09/05/18 16:16 Intake & Output 09/04/18 09/05/18 09/06/18 06:59 06:59 06:59 Intake Total 2053 918 354 Output Total 0 2 Balance 2053 916 354 Weight 118 kg 118.1 kg General appearance: PRESENT: no acute distress, well-developed, well-nourished Head exam: PRESENT: atraumatic, normocephalic Eye exam: PRESENT: conjunctiva pink, EOMI, PERRLA. ABSENT: scleral icterus Ear exam: PRESENT: normal external ear exam Mouth exam: PRESENT: moist, tongue midline Neck exam: ABSENT: carotid bruit, JVD, lymphadenopathy, thyromegaly Respiratory exam: PRESENT: clear to auscultation osei. ABSENT: rales, rhonchi, wheezes Cardiovascular exam: PRESENT: RRR. ABSENT: diastolic murmur, rubs, systolic murmur Pulses: PRESENT: normal dorsalis pedis pul Vascular exam: PRESENT: normal capillary refill GI/Abdominal exam: PRESENT: normal bowel sounds, soft. ABSENT: distended, guarding, mass, organolmegaly, rebound, tenderness Rectal exam: PRESENT: deferred Extremities exam: PRESENT: full ROM. ABSENT: calf tenderness, clubbing, pedal edema Neurological exam: PRESENT: alert, awake, oriented to person, oriented to place , oriented to time, oriented to situation, CN II-XII grossly intact, aphasic - Mild expressive aphasia.. ABSENT: motor sensory deficit Psychiatric exam: PRESENT: appropriate affect, normal mood. ABSENT: homicidal ideation, suicidal ideation Skin exam: PRESENT: dry, intact, warm. ABSENT: cyanosis, rash Results Laboratory Results: 09/03/18 05:40 09/03/18 05:40 09/02/18 09/02/18 09/02/18 02:15 07:46 14:10 Troponin I 0.020 0.018 0.013 Impressions: Chest X-Ray 09/01/18 20:04 IMPRESSION: NO ACUTE RADIOGRAPHIC FINDING IN THE CHEST. Head CT 09/01/18 20:04 IMPRESSION: Small hypoattenuating area of the left frontal lobe, concerning for acute infarct. EVIDENCE OF ACUTE STROKE: YES. LEFT MCA. Carotid Doppler Study 09/02/18 00:00 IMPRESSION: 1. NO HEMODYNAMICALLY SIGNIFICANT STENOSIS. Head MRI 09/02/18 00:00 IMPRESSION: Diffusion-weighted images are positive for small cortical and subcortical white matter infarct in the left patient greater than 24 hours old, low attenuation is seen in this area on prior CT last night. EVIDENCE OF ACUTE STROKE: YES Assessment & Plan - Diagnosis (1) Acute ischemic stroke Is this a current diagnosis for this admission?: Yes Plan: Left temporal lobe acute ischemic his stroke likely due to underlying uncontrolled hypertension. MRI positive for left temporal lobe infarct. A1c on admission is 5.5%. Troponin on admission 0.02-0.13. No acute EKG changes except for LVH and some PVCs. Neurologically intact, mild improvement of expressive aphasia. PT OT consulted and signed off. Pending speech therapy evaluation. Carotid Doppler negative for any hemodynamically significant stenosis. 2D echo negative for any thromboembolic source.. Continue aspirin, high intensity statin, optimize blood pressure. Plan is to discharge home with outpatient rehab once blood pressure is optimized. (2) Hypertension Is this a current diagnosis for this admission?: Yes Plan: Improving but not optimized. Systolic blood pressure in 200s on admission. Today her blood pressure has been between 150s. Continue IV labetalol as needed. Increase Coreg to 25 twice daily, lisinopril 10 daily and amlodipine 5 mg. She was going to be discharged home today however her blood pressure was not optimized. Tomorrow if her blood pressure is optimized and stable will discharge home. (3) DVT prophylaxis Is this a current diagnosis for this admission?: Yes Plan: Low molecular weight heparin. Encourage ambulation. (4) Obesity (BMI 35.0-39.9 without comorbidity) Is this a current diagnosis for this admission?: Yes Plan: Diet and lifestyle modification.
[2018-09-05] MEDS: ATORVASTATIN CALCIUM 40 MG TABLET PO SCH (21:36)
[2018-09-06 09:48] LABS: ABSOLUTE BASOPHILS # (AUTO) 0.1 10^3/uL (0.0-0.2); ABSOLUTE EOSINOPHILS # (AUTO) 0.2 10^3/uL (0.0-0.6); ABSOLUTE LYMPHOCYTES (AUTO) 1.6 10^3/uL (0.5-4.7); ABSOLUTE MONOCYTES (AUTO) 0.5 10^3/uL (0.1-1.4); ABSOLUTE NEUT (AUTO) 6.6 10^3/uL (1.7-8.2); BASOPHILS % (AUTO) 1.1 % (0-2); EOSINOPHILS % (AUTO) 1.9 % (0-6); HEMATOCRIT 40.7 % (36.0-47.0); HEMOGLOBIN 13.9 g/dL (12.0-15.5); LYMPHOCYTES % (AUTO) 17.4 % (13-45); MEAN CORPUSCULAR HEMOGLOBIN 28.1 pg (27.0-33.4); MEAN CORPUSCULAR HGB CONC 34.2 g/dL (32.0-36.0); MEAN CORPUSCULAR VOLUME 82 fl (80-97); MONOCYTES % (AUTO) 5.9 % (3-13); PLATELET COUNT 277 10^3/uL (150-450); RED BLOOD COUNT 4.97 10^6/uL (3.72-5.28); RED CELL DISTRIBUTION WIDTH 14.1 % (11.5-14.0); SEGMENTED NEUTROPHILS % (AUTO) 73.7 % (42-78); TOTAL CELLS COUNTED % (AUTO) 100 %
[2018-09-06 10:11] LABS: ALANINE AMINOTRANSFERASE 22 U/L (9-52); ALBUMIN 4.1 g/dL (3.5-5.0); ALKALINE PHOSPHATASE 85 U/L (38-126); ANION GAP 10 (5-19); ASPARTATE AMINO TRANSFERASE 18 U/L (14-36); BILIRUBIN,DIRECT 0.1 mg/dL (0.0-0.4); BILIRUBIN,TOTAL 0.6 mg/dL (0.2-1.3); BLOOD UREA NITROGEN 18 mg/dL (7-20); CALCIUM 9.7 mg/dL (8.4-10.2); CARBON DIOXIDE 30 mmol/L (22-30); CHLORIDE 103 mmol/L (98-107); GLUCOSE 116 mg/dL (75-110); POTASSIUM 4.5 mmol/L (3.6-5.0); SODIUM 143.1 mmol/L (137-145); TOTAL PROTEIN 6.7 g/dL (6.3-8.2)
--- NOTE | 2018-09-06 10:40 | RADIOLOGY REPORT (SQ) ---
EXAM DESCRIPTION: CT HEAD WITHOUT COMPLETED DATE/TIME: 09/06/2018 10:22 am REASON FOR STUDY: acute CVA, worsening aphasia COMPARISON: MR brain, 09/02/2018, CT brain, 09/01/2018 TECHNIQUE: Axial images acquired through the brain without intravenous contrast. Images reviewed wi th bone, brain and subdural windows. Additional sagittal and coronal reconstructions were generated. Images stored on PACS. All CT scanners at this facility use dose modulation, iterative reconstruction, and/or weight based d osing when appropriate to reduce radiation dose to as low as reasonably achievable (ALARA). [facility]: Dose Right [facility]: CareDose [facility]: Dose Right [facility]: Teradose 4D [facility]: Smart [place] RADIATION DOSE: CT Rad equipment meets quality standard of care and radiation dose reduction techniq ues were employed. CTDIvol: 48.7 mGy. DLP: 1054 mGy-cm. mGy. LIMITATIONS: None. FINDINGS: VENTRICLES: Normal size and contour. CEREBRUM: No masses. No hemorrhage. No midline shift. There is slight interval increase in left fr ontal MCA territory hypodensity. CEREBELLUM: No masses. No hemorrhage. No alteration of density. No evidence for acute infarction. EXTRAAXIAL SPACES: No fluid collections. No masses. ORBITS AND GLOBE: No intra- or extraconal masses. Normal contour of globe without masses. CALVARIUM: No fracture. PARANASAL SINUSES: No fluid or mucosal thickening. SOFT TISSUES: No mass or hematoma. OTHER: No other significant finding. IMPRESSION: Slight interval increase in left frontal MCA territory hypodensity, findings in keeping with evolving infarction seen on prior CT and MRI. There is no evidence of hemorrhagic conversion or significant mass effect. MRI may be used to more sensitively evaluate for acutely superimposed or r ecurrent infarction if indicated by clinical concern. EVIDENCE OF ACUTE STROKE: NO. COMMENT: Quality ID # [id number]: Final reports with documentation of one or more dose reduction techniques (e.g., Automated exposure control, adjustment of the mA and/or kV according to patient size, use of iterative reconstruction technique) TECHNICAL DOCUMENTATION: JOB ID: [id number] [employer]- All Rights Reserved Reading location - IP/workstation name: [email or web address]
[2018-09-06] MEDS: ENOXAPARIN SODIUM INJ 40 MG/0.4 ML DISP.SYRIN SUBCUT SCH (10:44)
[2018-09-06] MEDS: AMLODIPINE BESYLATE 5 MG TABLET PO SCH (10:50)
[2018-09-06] MEDS: CARVEDILOL 12.5 MG TABLET PO SCH ×2 (10:50→21:06)
[2018-09-06] MEDS: ASPIRIN 81 MG TABLET, ENT COATED PO SCH (10:50)
--- NOTE | 2018-09-06 13:55 | RADIOLOGY REPORT (SQ) ---
EXAM DESCRIPTION: MRI HEAD WITHOUT COMPLETED DATE/TIME: 09/06/2018 1:34 pm REASON FOR STUDY: r/o new stroke worsening aphasia COMPARISON: MR brain, 09/02/2018, same day CT brain TECHNIQUE: Multiplanar imaging includes non-contrasted T1, T2, FLAIR, and diffusion with ADC map seq uences. Images stored on PACS. LIMITATIONS: None. FINDINGS: ANATOMY: No anomalies. Normal vascular flow voids. Pituitary fossa normal. CSF SPACES: Normal in size and contour. No hemorrhage. CEREBRUM: Sulci and gyri normal in size and contour. Edema of the left frontal lobe in keeping with findings of prior infarction. Small scattered periventricular T2/FLAIR white matter hyperintensities . No evidence of hemorrhage, mass, or extraaxial fluid collection. POSTERIOR FOSSA: No signal alteration. No hemorrhage. No edema, masses or mass effect. Internal suhail tory canals, cerebello-pontine angles, mastoids normal. DIFFUSION IMAGING: There is redemonstrated diffusion restriction of the left frontal MCA territory, w ith increased diffusion restriction of the subcortical hemispheric white matter compared to prior exa mination. Cortical involvement is unchanged. There are no new foci of diffusion restriction. ORBITS: No masses. Globes normal. PARANASAL SINUSES: No fluid levels. Mucosa normal. OTHER: No other significant finding. IMPRESSION: There is redemonstrated diffusion restriction of the left frontal MCA territory, with in creased diffusion restriction of the subcortical hemispheric white matter compared to prior examinati on, findings likely reflecting penumbral evolution of known acute infarct. Cortical involvement is u nchanged. There are no new foci of diffusion restriction. No evidence of hemorrhagic conversion or significant mass effect related to edema. EVIDENCE OF ACUTE STROKE: YES. LEFT MCA TECHNICAL DOCUMENTATION: JOB ID: [id number] [employer]- All Rights Reserved Reading location - IP/workstation name: [email or web address]
[2018-09-06] MEDS: ATORVASTATIN CALCIUM 40 MG TABLET PO SCH (21:06)
[2018-09-07] MEDS: ASPIRIN 81 MG TABLET, ENT COATED PO SCH (09:14)
[2018-09-07] MEDS: CARVEDILOL 12.5 MG TABLET PO SCH ×2 (09:14→21:22)
--- NOTE | 2018-09-07 09:30 | PDOC PROGRESS REPORT ---
Subjective Progress Note for:: 09/07/18 Subjective:: JON ANTONIO 64-year-old female no past medical history who was brought in by his neighbors for not being able to talk. A brain MRI confirmed the CT finding of left temporal lobe stroke. A 2D echo of the carotids were negative for any hemodynamic stenosis. 09/02/2018. On my encounter patient is comfortably sitting in her bed in no acute distress very pleasant and cooperative with physical examination but unfortunately she has expressive aphasia and all she can say is okay. She denies any pain, fever, chills, nausea, vomiting, diarrhea, constipation, chest pain, shortness of breath. 09/03/2018. No acute events overnight. On my encounter patient is sitting comfortably in her bed very pleasant and cooperative with physical examination. Her aphasia has improved mildly, she was able to write her name and date of the week on the paper. Seems like she has a good understanding of her medical condition unfortunately could not express it due to her expressive aphasia. He denies any fever, chills, nausea, vomiting, diarrhea, constipation. P.o. tolerant having normal bowel and bladder function. She is ambulatory. Her blood pressure still not optimized, started on carvedilol low-dose today and will titrate up as tolerated. 09/04/2018. No acute events overnight. On my encounter patient is sitting in her chair not in any acute distress, very pleasant, very cooperative with physical examination. She has significant improvement of her expressive aphasia but she still cannot hold a conversation just answering in short sentences. She stating that she wants to go home tomorrow because today she does not have a ride to home and she does not feel safe yet to go home. 09/05/2018. No acute events overnight. On my encounter patient is comfortably sitting in her recliner and her aphasia has improved greatly. She is p.o. tolerant ambulatory having normal bowel and bladder movements. She was going to be transferred today to go and live with a friend unfortunately her blood pressure still not optimized. Plan is to discharge her tomorrow if blood pressure is stable. 09/06/2018. No acute events overnight. Patient is still ambulatory and tolerating her p.o. intake she is having normal bowel and bladder function however the nursing staff have noticed that her expressive aphasia is getting worse and she is also having mild right facial droop. On my encounter patient is comfortably sitting in her recliner receiving her speech therapy as per speech therapy she was doing fine but on my observation compared to yesterday she is having difficulty communicating as good as she used to do yesterday. Yesterday she was able to tell me how she was doing where she was and could repeat after me. Today she still does that but takes her a while to repeat and also she is using one word responses. She is denying any fever, chills, nausea , vomiting, diarrhea, constipation, numbness, tingling or any focal neurological deficits. Order new stat CT to rule out a new stroke. 09/07/2018. No acute events overnight. Patient has been ambulating, p.o. tolerant. On my encounter patient is sitting comfortably in her chair however on my physical examination her initiation has not gotten better since yesterday , she still have persistent right facial droop unchanged from yesterday. She still able to repeat words but whenever asked any questions she will not give any answer. She is not able to point to the clock on the wall. CT head and MRI brain was done yesterday which did not show any new strokes except for the evolving left temporal stroke. Her bp has been better controlled with systolic bp of 140s and 150s, afebrile, pulse rate of less than 100, saturating 91% on room air. No labs today however her labs on 09/06/2018 was within normal limits. At this time I do not feel safe for the patient to be sent home. We will plan to transfer patient to inpatient rehab for continuing physical therapy, patient will therapy speech therapy. Reason For Visit: ACUTE STROKE Physical Exam Vital Signs: Temp Pulse Resp BP Pulse Ox 98.0 F 75 16 160/86 H 99 09/07/18 07:19 09/07/18 07:19 09/07/18 07:19 09/07/18 07:19 09/07/18 07:19 Intake & Output 09/06/18 09/07/18 09/08/18 06:59 06:59 06:59 Intake Total 591 891 Balance 591 891 Weight 119 kg 118.3 kg General appearance: PRESENT: no acute distress, well-developed, well-nourished Head exam: PRESENT: atraumatic, normocephalic Respiratory exam: PRESENT: clear to auscultation osei. ABSENT: rales, rhonchi, wheezes Cardiovascular exam: PRESENT: RRR. ABSENT: diastolic murmur, rubs, systolic murmur GI/Abdominal exam: PRESENT: normal bowel sounds, soft. ABSENT: distended, guarding, mass, organolmegaly, rebound, tenderness Musculoskeletal exam: PRESENT: ambulatory, deformity, dislocation, full ROM, normal inspection, tenderness, other Neurological exam: PRESENT: alert, awake, CN II-XII grossly intact, normal gait , aphasic. ABSENT: motor sensory deficit Results Laboratory Results: 09/06/18 09:35 09/06/18 09:35 09/06/18 09/06/18 09:35 09:35 WBC 9.0 RBC 4.97 Hgb 13.9 Hct 40.7 MCV 82 MCH 28.1 MCHC 34.2 RDW 14.1 H Plt Count 277 Seg Neutrophils % 73.7 Lymphocytes % 17.4 Monocytes % 5.9 Eosinophils % 1.9 Basophils % 1.1 Absolute Neutrophils 6.6 Absolute Lymphocytes 1.6 Absolute Monocytes 0.5 Absolute Eosinophils 0.2 Absolute Basophils 0.1 Sodium 143.1 Potassium 4.5 Chloride 103 Carbon Dioxide 30 Anion Gap 10 BUN 18 Creatinine 0.67 Est GFR ( Amer) > 60 Est GFR (Non-Af Amer) > 60 Glucose 116 H Calcium 9.7 Total Bilirubin 0.6 AST 18 ALT 22 Alkaline Phosphatase 85 Total Protein 6.7 Albumin 4.1 09/02/18 09/02/18 09/02/18 02:15 07:46 14:10 Troponin I 0.020 0.018 0.013 Impressions: Chest X-Ray 09/01/18 20:04 IMPRESSION: NO ACUTE RADIOGRAPHIC FINDING IN THE CHEST. Carotid Doppler Study 09/02/18 00:00 IMPRESSION: 1. NO HEMODYNAMICALLY SIGNIFICANT STENOSIS. Head CT 09/06/18 00:00 IMPRESSION: Slight interval increase in left frontal MCA territory hypodensity , findings in keeping with evolving infarction seen on prior CT and MRI. There is no evidence of hemorrhagic conversion or significant mass effect. MRI may be used to more sensitively evaluate for acutely superimposed or recurrent infarction if indicated by clinical concern. EVIDENCE OF ACUTE STROKE: NO. Head MRI 09/06/18 00:00 IMPRESSION: There is redemonstrated diffusion restriction of the left frontal MCA territory, with increased diffusion restriction of the subcortical hemispheric white matter compared to prior examination, findings likely reflecting penumbral evolution of known acute infarct. Cortical involvement is unchanged. There are no new foci of diffusion restriction. No evidence of hemorrhagic conversion or significant mass effect related to edema. EVIDENCE OF ACUTE STROKE: YES. LEFT MCA Assessment & Plan - Diagnosis (1) Acute ischemic stroke Is this a current diagnosis for this admission?: Yes Plan: Left temporal lobe acute ischemic his stroke likely due to underlying uncontrolled hypertension. Patient was having worsening a aphasia and mild right facial droop patient may need to be transferred to inpatient rehab for close monitoring and continuation of PT ST OT. 09/06/2018 CT head slight interval increase in left frontal MCA territory hypodensity findings in keeping with evolving infarction. 09/06/2018. MRI of head redemonstrated diffusion restriction of the left frontal MCA territory with increased diffusion restriction in the subcortical hemispheric white matter compared to prior examination findings likely reflecting for normal evolution of known acute infarct. There are no new foci of diffusion restriction. No evidence of hemorrhagic conversion or significant mass-effect related to the edema. 09/02/2018. Brain MRI diffusion weighted images are positive for small cortical and subcortical white matter infarct in the left. 09/01/2018. Head CT small hypoattenuating area of the left frontal lobe concerning for acute infarct. 09/02/2018. Carotid Doppler no hemodynamically significant stenosis. A1c on admission is 5.5%. Troponin on admission 0.02-0.13. No acute EKG changes except for LVH and some PVCs. Neurologically intact, except for worsening expressive aphasia. 2D echo negative for any thromboembolic source.. Continue aspirin, high intensity statin, optimize blood pressure. Plan is to try to send patient to inpatient rehab. (2) Hypertension Is this a current diagnosis for this admission?: Yes Plan: Improving but not optimized. Continue Coreg 25 twice daily, lisinopril 10 mg daily, amlodipine 2.5 Her blood pressure, adjust meds as needed. (3) DVT prophylaxis Is this a current diagnosis for this admission?: Yes Plan: Low molecular weight heparin. Encourage ambulation. (4) Obesity (BMI 35.0-39.9 without comorbidity) Is this a current diagnosis for this admission?: Yes Plan: Diet and lifestyle modification.
[2018-09-07] MEDS ORDERED: LISINOPRIL 10 MG TABLET PO SCH (10:00)
[2018-09-07] MEDS ORDERED: AMLODIPINE BESYLATE 2.5 MG TABLET PO SCH (18:00)
[2018-09-07] MEDS: ATORVASTATIN CALCIUM 40 MG TABLET PO SCH (21:23)
[2018-09-08] MEDS: LISINOPRIL 10 MG TABLET PO SCH (09:13)
[2018-09-08] MEDS: ASPIRIN 81 MG TABLET, ENT COATED PO SCH (09:13)
[2018-09-08] MEDS: CARVEDILOL 12.5 MG TABLET PO SCH ×2 (09:13→21:33)
--- NOTE | 2018-09-08 09:29 | PDOC PROGRESS REPORT ---
Subjective Progress Note for:: 09/08/18 Subjective:: JON ANTONIO 64-year-old female no past medical history who was brought in by his neighbors for not being able to talk. A brain MRI confirmed the CT finding of left temporal lobe stroke. A 2D echo of the carotids were negative for any hemodynamic stenosis. 09/02/2018. On my encounter patient is comfortably sitting in her bed in no acute distress very pleasant and cooperative with physical examination but unfortunately she has expressive aphasia and all she can say is okay. She denies any pain, fever, chills, nausea, vomiting, diarrhea, constipation, chest pain, shortness of breath. 09/03/2018. No acute events overnight. On my encounter patient is sitting comfortably in her bed very pleasant and cooperative with physical examination. Her aphasia has improved mildly, she was able to write her name and date of the week on the paper. Seems like she has a good understanding of her medical condition unfortunately could not express it due to her expressive aphasia. He denies any fever, chills, nausea, vomiting, diarrhea, constipation. P.o. tolerant having normal bowel and bladder function. She is ambulatory. Her blood pressure still not optimized, started on carvedilol low-dose today and will titrate up as tolerated. 09/04/2018. No acute events overnight. On my encounter patient is sitting in her chair not in any acute distress, very pleasant, very cooperative with physical examination. She has significant improvement of her expressive aphasia but she still cannot hold a conversation just answering in short sentences. She stating that she wants to go home tomorrow because today she does not have a ride to home and she does not feel safe yet to go home. 09/05/2018. No acute events overnight. On my encounter patient is comfortably sitting in her recliner and her aphasia has improved greatly. She is p.o. tolerant ambulatory having normal bowel and bladder movements. She was going to be transferred today to go and live with a friend unfortunately her blood pressure still not optimized. Plan is to discharge her tomorrow if blood pressure is stable. 09/06/2018. No acute events overnight. Patient is still ambulatory and tolerating her p.o. intake she is having normal bowel and bladder function however the nursing staff have noticed that her expressive aphasia is getting worse and she is also having mild right facial droop. On my encounter patient is comfortably sitting in her recliner receiving her speech therapy as per speech therapy she was doing fine but on my observation compared to yesterday she is having difficulty communicating as good as she used to do yesterday. Yesterday she was able to tell me how she was doing where she was and could repeat after me. Today she still does that but takes her a while to repeat and also she is using one word responses. She is denying any fever, chills, nausea , vomiting, diarrhea, constipation, numbness, tingling or any focal neurological deficits. Order new stat CT to rule out a new stroke. 09/07/2018. No acute events overnight. Patient has been ambulating, p.o. tolerant. On my encounter patient is sitting comfortably in her chair however on my physical examination her initiation has not gotten better since yesterday , she still have persistent right facial droop unchanged from yesterday. She still able to repeat words but whenever asked any questions she will not give any answer. She is not able to point to the clock on the wall. CT head and MRI brain was done yesterday which did not show any new strokes except for the evolving left temporal stroke. Her bp has been better controlled with systolic bp of 140s and 150s, afebrile, pulse rate of less than 100, saturating 91% on room air. No labs today however her labs on 09/06/2018 was within normal limits. At this time I do not feel safe for the patient to be sent home. We will plan to transfer patient to inpatient rehab for continuing physical therapy, patient will therapy speech therapy. 09/08/2018. No acute events overnight. Patient sitting comfortably and her chair in no apparent distress, her EKG is unchanged from yesterday, she is able to repeat extremity however when asked about her name she cannot tell me her name. I was able to talk to Dr. Meléndez neurologist [facility] he suggested that she may have had extension of her left temporal infarct. He said he could be safely started on DVT prophylaxis and also another antiplatelet can be added. He suggested he could be started on Plavix and aspirin. He also suggested that blood pressure should not be dropped to less than 130s and less than 140s. Goal is to keep her blood pressure with 130s-150s. Reason For Visit: ACUTE STROKE Physical Exam Vital Signs: Temp Pulse Resp BP Pulse Ox 98.3 F 73 16 157/76 H 98 09/08/18 07:46 09/08/18 07:46 09/08/18 07:46 09/08/18 07:46 09/08/18 07:46 Intake & Output 09/07/18 09/08/18 09/09/18 06:59 06:59 06:59 Intake Total 891 641 Balance 891 641 Weight 118.3 kg 118.3 kg General appearance: PRESENT: no acute distress, well-developed, well-nourished Head exam: PRESENT: atraumatic, normocephalic Respiratory exam: PRESENT: clear to auscultation osei. ABSENT: rales, rhonchi, wheezes Cardiovascular exam: PRESENT: RRR. ABSENT: diastolic murmur, rubs, systolic murmur GI/Abdominal exam: PRESENT: normal bowel sounds, soft. ABSENT: distended, guarding, mass, organolmegaly, rebound, tenderness Musculoskeletal exam: PRESENT: ambulatory, deformity, dislocation, full ROM, normal inspection, tenderness, other Neurological exam: PRESENT: alert, awake, CN II-XII grossly intact, aphasic. ABSENT: motor sensory deficit Results Laboratory Results: 09/06/18 09:35 09/06/18 09:35 09/02/18 09/02/18 09/02/18 02:15 07:46 14:10 Troponin I 0.020 0.018 0.013 Impressions: Chest X-Ray 09/01/18 20:04 IMPRESSION: NO ACUTE RADIOGRAPHIC FINDING IN THE CHEST. Carotid Doppler Study 09/02/18 00:00 IMPRESSION: 1. NO HEMODYNAMICALLY SIGNIFICANT STENOSIS. Head CT 09/06/18 00:00 IMPRESSION: Slight interval increase in left frontal MCA territory hypodensity , findings in keeping with evolving infarction seen on prior CT and MRI. There is no evidence of hemorrhagic conversion or significant mass effect. MRI may be used to more sensitively evaluate for acutely superimposed or recurrent infarction if indicated by clinical concern. EVIDENCE OF ACUTE STROKE: NO. Head MRI 09/06/18 00:00 IMPRESSION: There is redemonstrated diffusion restriction of the left frontal MCA territory, with increased diffusion restriction of the subcortical hemispheric white matter compared to prior examination, findings likely reflecting penumbral evolution of known acute infarct. Cortical involvement is unchanged. There are no new foci of diffusion restriction. No evidence of hemorrhagic conversion or significant mass effect related to edema. EVIDENCE OF ACUTE STROKE: YES. LEFT MCA Assessment & Plan - Diagnosis (1) Acute ischemic stroke Is this a current diagnosis for this admission?: Yes Plan: Left temporal lobe acute ischemic his stroke likely due to underlying uncontrolled hypertension. Patient was having worsening a aphasia and mild right facial droop patient may need to be transferred to inpatient rehab for close monitoring and continuation of PT ST OT. 09/06/2018 CT head slight interval increase in left frontal MCA territory hypodensity findings in keeping with evolving infarction. 09/06/2018. MRI of head redemonstrated diffusion restriction of the left frontal MCA territory with increased diffusion restriction in the subcortical hemispheric white matter compared to prior examination findings likely reflecting for normal evolution of known acute infarct. There are no new foci of diffusion restriction. No evidence of hemorrhagic conversion or significant mass-effect related to the edema. 09/02/2018. Brain MRI diffusion weighted images are positive for small cortical and subcortical white matter infarct in the left. 09/01/2018. Head CT small hypoattenuating area of the left frontal lobe concerning for acute infarct. 09/02/2018. Carotid Doppler no hemodynamically significant stenosis. A1c on admission is 5.5%. Troponin on admission 0.02-0.13. No acute EKG changes except for LVH and some PVCs. Neurologically intact, except for worsening expressive aphasia. 2D echo negative for any thromboembolic source. Continue DAPT, high intensity statin, optimize blood pressure. Plan is to try to send patient to inpatient rehab. (2) Hypertension Is this a current diagnosis for this admission?: Yes Plan: Improving but not optimized. Coreg 25, lisinopril 40. Vitals: SBP 143-157, afebrile, RR 68-111 SPO2 100% on room air. Monitor BPs adjust meds as needed. Goal of blood pressure 130-[address] Meléndez's recommendation neurologist from [facility] (3) DVT prophylaxis Is this a current diagnosis for this admission?: Yes Plan: Low molecular weight heparin. Encourage ambulation. (4) Obesity (BMI 35.0-39.9 without comorbidity) Is this a current diagnosis for this admission?: Yes Plan: Diet and lifestyle modification.
[2018-09-08] MEDS ORDERED: AMLODIPINE BESYLATE 2.5 MG TABLET PO SCH ×2 (10:00)
[2018-09-08] MEDS: CLOPIDOGREL BISULFATE 75 MG TABLET PO SCH (11:32)
[2018-09-08] MEDS: ATORVASTATIN CALCIUM 40 MG TABLET PO SCH (21:32)
[2018-09-09 06:18] LABS: ABSOLUTE BASOPHILS # (AUTO) 0.1 10^3/uL (0.0-0.2); ABSOLUTE EOSINOPHILS # (AUTO) 0.1 10^3/uL (0.0-0.6); ABSOLUTE LYMPHOCYTES (AUTO) 1.8 10^3/uL (0.5-4.7); ABSOLUTE MONOCYTES (AUTO) 0.6 10^3/uL (0.1-1.4); ABSOLUTE NEUT (AUTO) 6.8 10^3/uL (1.7-8.2); BASOPHILS % (AUTO) 0.8 % (0-2); EOSINOPHILS % (AUTO) 1.3 % (0-6); LYMPHOCYTES % (AUTO) 19.3 % (13-45); MEAN CORPUSCULAR HEMOGLOBIN 28.1 pg (27.0-33.4); MEAN CORPUSCULAR HGB CONC 34.3 g/dL (32.0-36.0); MEAN CORPUSCULAR VOLUME 82 fl (80-97); MONOCYTES % (AUTO) 6.5 % (3-13); PLATELET COUNT 207 10^3/uL (150-450); RED BLOOD COUNT 4.63 10^6/uL (3.72-5.28); SEGMENTED NEUTROPHILS % (AUTO) 72.1 % (42-78); TOTAL CELLS COUNTED % (AUTO) 100 %; WHITE BLOOD COUNT 9.4 10^3/uL (4.0-10.5)
[2018-09-09 06:42] LABS: ALANINE AMINOTRANSFERASE 35 U/L (9-52); ALBUMIN 3.5 g/dL (3.5-5.0); ALKALINE PHOSPHATASE 73 U/L (38-126); ANION GAP 11 (5-19); ASPARTATE AMINO TRANSFERASE 25 U/L (14-36); BILIRUBIN,DIRECT 0.1 mg/dL (0.0-0.4); BILIRUBIN,TOTAL 0.5 mg/dL (0.2-1.3); BLOOD UREA NITROGEN 19 mg/dL (7-20); CALCIUM 9.2 mg/dL (8.4-10.2); CARBON DIOXIDE 28 mmol/L (22-30); CHLORIDE 105 mmol/L (98-107); GLUCOSE 109 mg/dL (75-110); POTASSIUM 4.3 mmol/L (3.6-5.0); SODIUM 144.3 mmol/L (137-145)
[2018-09-09] MEDS ORDERED: AMLODIPINE BESYLATE 2.5 MG TABLET PO ONE (07:00)
[2018-09-09] MEDS ORDERED: LABETALOL HCL INJ 20 MG/4 ML DISP.SYRIN IV PRN (09:05)
--- NOTE | 2018-09-09 09:16 | PDOC PROGRESS REPORT ---
Subjective Progress Note for:: 09/09/18 Subjective:: JON ANTONIO 64-year-old female no past medical history who was brought in by his neighbors for not being able to talk. A brain MRI confirmed the CT finding of left temporal lobe stroke. A 2D echo of the carotids were negative for any hemodynamic stenosis. 09/02/2018. On my encounter patient is comfortably sitting in her bed in no acute distress very pleasant and cooperative with physical examination but unfortunately she has expressive aphasia and all she can say is okay. She denies any pain, fever, chills, nausea, vomiting, diarrhea, constipation, chest pain, shortness of breath. 09/03/2018. No acute events overnight. On my encounter patient is sitting comfortably in her bed very pleasant and cooperative with physical examination. Her aphasia has improved mildly, she was able to write her name and date of the week on the paper. Seems like she has a good understanding of her medical condition unfortunately could not express it due to her expressive aphasia. He denies any fever, chills, nausea, vomiting, diarrhea, constipation. P.o. tolerant having normal bowel and bladder function. She is ambulatory. Her blood pressure still not optimized, started on carvedilol low-dose today and will titrate up as tolerated. 09/04/2018. No acute events overnight. On my encounter patient is sitting in her chair not in any acute distress, very pleasant, very cooperative with physical examination. She has significant improvement of her expressive aphasia but she still cannot hold a conversation just answering in short sentences. She stating that she wants to go home tomorrow because today she does not have a ride to home and she does not feel safe yet to go home. 09/05/2018. No acute events overnight. On my encounter patient is comfortably sitting in her recliner and her aphasia has improved greatly. She is p.o. tolerant ambulatory having normal bowel and bladder movements. She was going to be transferred today to go and live with a friend unfortunately her blood pressure still not optimized. Plan is to discharge her tomorrow if blood pressure is stable. 09/06/2018. No acute events overnight. Patient is still ambulatory and tolerating her p.o. intake she is having normal bowel and bladder function however the nursing staff have noticed that her expressive aphasia is getting worse and she is also having mild right facial droop. On my encounter patient is comfortably sitting in her recliner receiving her speech therapy as per speech therapy she was doing fine but on my observation compared to yesterday she is having difficulty communicating as good as she used to do yesterday. Yesterday she was able to tell me how she was doing where she was and could repeat after me. Today she still does that but takes her a while to repeat and also she is using one word responses. She is denying any fever, chills, nausea , vomiting, diarrhea, constipation, numbness, tingling or any focal neurological deficits. Order new stat CT to rule out a new stroke. 09/07/2018. No acute events overnight. Patient has been ambulating, p.o. tolerant. On my encounter patient is sitting comfortably in her chair however on my physical examination her initiation has not gotten better since yesterday , she still have persistent right facial droop unchanged from yesterday. She still able to repeat words but whenever asked any questions she will not give any answer. She is not able to point to the clock on the wall. CT head and MRI brain was done yesterday which did not show any new strokes except for the evolving left temporal stroke. Her bp has been better controlled with systolic bp of 140s and 150s, afebrile, pulse rate of less than 100, saturating 91% on room air. No labs today however her labs on 09/06/2018 was within normal limits. At this time I do not feel safe for the patient to be sent home. We will plan to transfer patient to inpatient rehab for continuing physical therapy, patient will therapy speech therapy. 09/08/2018. No acute events overnight. Patient sitting comfortably and her chair in no apparent distress, her EKG is unchanged from yesterday, she is able to repeat extremity however when asked about her name she cannot tell me her name. I was able to talk to Dr. Meléndez neurologist [facility] he suggested that she may have had extension of her left temporal infarct. He said he could be safely started on DVT prophylaxis and also another antiplatelet can be added. He suggested he could be started on Plavix and aspirin. He also suggested that blood pressure should not be dropped to less than 130s and less than 140s. Goal is to keep her blood pressure with 130s-150s. 09/09/2018. No acute events overnight. Patient has been ambulatory and p.o. tolerant. On my encounter patient is sitting comfortably in her chair in no apparent distress. Right facial droop has improved slightly however patient is still has moderate aphasia. She is able to point to TV, repeat after me, but not tell me her name. When asked to write her name she cannot write her name either. She basically communicates by shaking her head. She denies any fever, chills, nausea, vomiting, diarrhea or any constipation. Reason For Visit: ACUTE STROKE Physical Exam Vital Signs: Temp Pulse Resp BP Pulse Ox 99.1 F 66 18 175/77 H 97 09/09/18 07:20 09/09/18 07:20 09/09/18 07:20 09/09/18 07:20 09/09/18 07:20 Intake & Output 09/08/18 09/09/18 09/10/18 06:59 06:59 06:59 Intake Total 641 1147 Balance 641 1147 Weight 118.3 kg 117.6 kg General appearance: PRESENT: no acute distress, well-developed, well-nourished Head exam: PRESENT: atraumatic, normocephalic Respiratory exam: PRESENT: clear to auscultation osei. ABSENT: rales, rhonchi, wheezes Cardiovascular exam: PRESENT: RRR. ABSENT: diastolic murmur, rubs, systolic murmur Extremities exam: PRESENT: full ROM. ABSENT: calf tenderness, clubbing, pedal edema Neurological exam: PRESENT: alert, awake, oriented to person, CN II-XII grossly intact, aphasic - Receptive and expressive aphasia and apraxia.. ABSENT: motor sensory deficit Results Laboratory Results: 09/09/18 05:09 09/09/18 05:09 09/09/18 09/09/18 05:09 05:09 WBC 9.4 RBC 4.63 Hgb 13.0 Hct 38.0 MCV 82 MCH 28.1 MCHC 34.3 RDW 14.0 Plt Count 207 Seg Neutrophils % 72.1 Lymphocytes % 19.3 Monocytes % 6.5 Eosinophils % 1.3 Basophils % 0.8 Absolute Neutrophils 6.8 Absolute Lymphocytes 1.8 Absolute Monocytes 0.6 Absolute Eosinophils 0.1 Absolute Basophils 0.1 Sodium 144.3 Potassium 4.3 Chloride 105 Carbon Dioxide 28 Anion Gap 11 BUN 19 Creatinine 0.59 Est GFR ( Amer) > 60 Est GFR (Non-Af Amer) > 60 Glucose 109 Calcium 9.2 Total Bilirubin 0.5 AST 25 ALT 35 Alkaline Phosphatase 73 Total Protein 6.0 L Albumin 3.5 09/02/18 09/02/18 09/02/18 02:15 07:46 14:10 Troponin I 0.020 0.018 0.013 Impressions: Chest X-Ray 09/01/18 20:04 IMPRESSION: NO ACUTE RADIOGRAPHIC FINDING IN THE CHEST. Carotid Doppler Study 09/02/18 00:00 IMPRESSION: 1. NO HEMODYNAMICALLY SIGNIFICANT STENOSIS. Head CT 09/06/18 00:00 IMPRESSION: Slight interval increase in left frontal MCA territory hypodensity , findings in keeping with evolving infarction seen on prior CT and MRI. There is no evidence of hemorrhagic conversion or significant mass effect. MRI may be used to more sensitively evaluate for acutely superimposed or recurrent infarction if indicated by clinical concern. EVIDENCE OF ACUTE STROKE: NO. Head MRI 09/06/18 00:00 IMPRESSION: There is redemonstrated diffusion restriction of the left frontal MCA territory, with increased diffusion restriction of the subcortical hemispheric white matter compared to prior examination, findings likely reflecting penumbral evolution of known acute infarct. Cortical involvement is unchanged. There are no new foci of diffusion restriction. No evidence of hemorrhagic conversion or significant mass effect related to edema. EVIDENCE OF ACUTE STROKE: YES. LEFT MCA Assessment & Plan - Diagnosis (1) Acute ischemic stroke Is this a current diagnosis for this admission?: Yes Plan: Left temporal lobe acute ischemic his stroke likely due to underlying uncontrolled hypertension. Right facial droop mild improvement persistent expressive and receptive aphasia with apraxia otherwise no focal deficits. Patient is ambulatory, p.o. tolerant , having normal bladder and bowel function. Plan is to transfer close monitoring of pressure and continuation of PT ST OT. Continue DAPT, high intensity statin, optimize blood pressure. Goal of systolic blood pressure 130-150. Continue carvedilol 25 mg p.o. twice daily, lisinopril 40 mg p.o. daily. Increase amlodipine from 2.5-5 mg p.o. daily. Continue labetalol IV as needed. 09/08/2018 I was able to talk to Dr. Meléndez neurologist [facility] he suggested that she may have had extension of her left temporal infarct. He said he could be safely started on DVT prophylaxis and also another antiplatelet can be added. He suggested he could be started on Plavix and aspirin. He also suggested to keep systolic blood pressure between 130-150. 09/06/2018 CT head slight interval increase in left frontal MCA territory hypodensity findings in keeping with evolving infarction. 09/06/2018. MRI of head redemonstrated diffusion restriction of the left frontal MCA territory with increased diffusion restriction in the subcortical hemispheric white matter compared to prior examination findings likely reflecting for normal evolution of known acute infarct. There are no new foci of diffusion restriction. No evidence of hemorrhagic conversion or significant mass-effect related to the edema. 09/02/2018. Brain MRI diffusion weighted images are positive for small cortical and subcortical white matter infarct in the left. 09/01/2018. Head CT small hypoattenuating area of the left frontal lobe concerning for acute infarct. 09/02/2018. Carotid Doppler no hemodynamically significant stenosis. A1c on admission is 5.5%. Troponin on admission 0.02-0.13. No acute EKG changes except for LVH and some PVCs. 2D echo negative for any thromboembolic source. (2) Hypertension Is this a current diagnosis for this admission?: Yes Plan: Improving but not optimized. Vitals: Systolic blood pressure 146-175, T 97.3-99.1, pulse 66-73, respiratory rate 16-22, SPO2 100% on RA Continue carvedilol 25 mg p.o. twice daily, lisinopril 40 mg p.o. daily, increase amlodipine to 5 mg p.o. daily. Continue labetalol IV as needed. Goal of systolic blood pressure 130-150 2D echo negative for any thromboembolic source. 09/08/2013 as per my conversation with 's recommendation neurologist from [facility] goal of systolic blood pressure is 132 150. (3) DVT prophylaxis Is this a current diagnosis for this admission?: Yes Plan: Low molecular weight heparin. Encourage ambulation. (4) Obesity (BMI 35.0-39.9 without comorbidity) Is this a current diagnosis for this admission?: Yes Plan: Diet and lifestyle modification.
[2018-09-09] MEDS: CLOPIDOGREL BISULFATE 75 MG TABLET PO SCH (09:32)
[2018-09-09] MEDS: ENOXAPARIN SODIUM INJ 40 MG/0.4 ML DISP.SYRIN SUBCUT SCH (09:32)
[2018-09-09] MEDS: ASPIRIN 81 MG TABLET, ENT COATED PO SCH (09:32)
[2018-09-09] MEDS: CARVEDILOL 12.5 MG TABLET PO SCH ×2 (09:34→21:16)
[2018-09-09] MEDS: LISINOPRIL 10 MG TABLET PO SCH (09:34)
[2018-09-09] MEDS ORDERED: ENOXAPARIN SODIUM INJ 30 MG/0.3 ML DISP.SYRIN SUBCUT SCH (10:00)
[2018-09-09 13:59] LABS: ANION GAP 12 (5-19); BLOOD UREA NITROGEN 19 mg/dL (7-20); CALCIUM 9.6 mg/dL (8.4-10.2); CARBON DIOXIDE 28 mmol/L (22-30); CHLORIDE 102 mmol/L (98-107); GLUCOSE 88 mg/dL (75-110); POTASSIUM 4.3 mmol/L (3.6-5.0); SODIUM 142.4 mmol/L (137-145)
--- NOTE | 2018-09-09 15:16 | PDOC PROGRESS REPORT ---
Subjective Progress Note for:: 09/06/18 Subjective:: JON ANTONIO 64-year-old female no past medical history who was brought in by his neighbors for not being able to talk. A brain MRI confirmed the CT finding of left temporal lobe stroke. A 2D echo of the carotids were negative for any hemodynamic stenosis. 09/02/2018. On my encounter patient is comfortably sitting in her bed in no acute distress very pleasant and cooperative with physical examination but unfortunately she has expressive aphasia and all she can say is okay. She denies any pain, fever, chills, nausea, vomiting, diarrhea, constipation, chest pain, shortness of breath. 09/03/2018. No acute events overnight. On my encounter patient is sitting comfortably in her bed very pleasant and cooperative with physical examination. Her aphasia has improved mildly, she was able to write her name and date of the week on the paper. Seems like she has a good understanding of her medical condition unfortunately could not express it due to her expressive aphasia. He denies any fever, chills, nausea, vomiting, diarrhea, constipation. P.o. tolerant having normal bowel and bladder function. She is ambulatory. Her blood pressure still not optimized, started on carvedilol low-dose today and will titrate up as tolerated. 09/04/2018. No acute events overnight. On my encounter patient is sitting in her chair not in any acute distress, very pleasant, very cooperative with physical examination. She has significant improvement of her expressive aphasia but she still cannot hold a conversation just answering in short sentences. She stating that she wants to go home tomorrow because today she does not have a ride to home and she does not feel safe yet to go home. 09/05/2018. No acute events overnight. On my encounter patient is comfortably sitting in her recliner and her aphasia has improved greatly. She is p.o. tolerant ambulatory having normal bowel and bladder movements. She was going to be transferred today to go and live with a friend unfortunately her blood pressure still not optimized. Plan is to discharge her tomorrow if blood pressure is stable. 09/06/2018. No acute events overnight. Patient is still ambulatory and tolerating her p.o. intake she is having normal bowel and bladder function however the nursing staff have noticed that her expressive aphasia is getting worse and she is also having mild right facial droop. On my encounter patient is comfortably sitting in her recliner receiving her speech therapy as per speech therapy she was doing fine but on my observation compared to yesterday she is having difficulty communicating as good as she used to do yesterday. Yesterday she was able to tell me how she was doing where she was and could repeat after me. Today she still does that but takes her a while to repeat and also she is using one word responses. She is denying any fever, chills, nausea , vomiting, diarrhea, constipation, numbness, tingling or any focal neurological deficits. Order new stat CT to rule out a new stroke. Reason For Visit: ACUTE STROKE Physical Exam Vital Signs: Temp Pulse Resp BP Pulse Ox 97.6 F 72 18 174/79 H 98 09/06/18 07:38 09/06/18 07:38 09/06/18 07:38 09/06/18 07:38 09/06/18 07:38 Intake & Output 09/05/18 09/06/18 09/07/18 06:59 06:59 06:59 Intake Total 918 591 Output Total 0 Balance 918 591 Weight 118.1 kg 119 kg General appearance: PRESENT: no acute distress, well-developed, well-nourished Head exam: PRESENT: atraumatic, normocephalic Respiratory exam: PRESENT: clear to auscultation osei. ABSENT: rales, rhonchi, wheezes Cardiovascular exam: PRESENT: RRR. ABSENT: diastolic murmur, rubs, systolic murmur GI/Abdominal exam: PRESENT: normal bowel sounds, soft. ABSENT: distended, guarding, mass, organolmegaly, rebound, tenderness Neurological exam: PRESENT: alert, awake, oriented to person, oriented to place , oriented to time, abnormal gait, ataxia, CN II-XII grossly intact, normal gait , aphasic. ABSENT: altered, motor sensory deficit, other Results Laboratory Results: 09/03/18 05:40 09/03/18 05:40 09/02/18 09/02/18 09/02/18 02:15 07:46 14:10 Troponin I 0.020 0.018 0.013 Impressions: Chest X-Ray 09/01/18 20:04 IMPRESSION: NO ACUTE RADIOGRAPHIC FINDING IN THE CHEST. Head CT 09/01/18 20:04 IMPRESSION: Small hypoattenuating area of the left frontal lobe, concerning for acute infarct. EVIDENCE OF ACUTE STROKE: YES. LEFT MCA. Carotid Doppler Study 09/02/18 00:00 IMPRESSION: 1. NO HEMODYNAMICALLY SIGNIFICANT STENOSIS. Head MRI 09/02/18 00:00 IMPRESSION: Diffusion-weighted images are positive for small cortical and subcortical white matter infarct in the left patient greater than 24 hours old, low attenuation is seen in this area on prior CT last night. EVIDENCE OF ACUTE STROKE: YES Assessment & Plan - Diagnosis (1) Acute ischemic stroke Is this a current diagnosis for this admission?: Yes Plan: Left temporal lobe acute ischemic his stroke likely due to underlying uncontrolled hypertension. Patient was having worsening a aphasia and mild right facial droop repeat CT scan was done. 09/06/2018 CT head slight interval increase in left frontal MCA territory hypodensity findings in keeping with evolving infarction seen on prior CT and MRI. 09/06/2018. MRI of head read as there is redemonstrated diffusion restriction of the left frontal MCA territory with increased diffusion restriction in the subcortical hemispheric white matter compared to prior examination findings likely reflecting for normal evolution of known acute infarct. There are no new foci of diffusion restriction. No evidence of hemorrhagic conversion or significant mass-effect related to the edema. 09/02/2018. Brain MRI diffusion weighted images are positive for small cortical and subcortical white matter infarct in the left greater than 24 hours. 09/01/2018. Head CT small hypoattenuating area of the left frontal lobe concerning for acute infarct. 09/02/2018. Carotid Doppler no hemodynamically significant stenosis. A1c on admission is 5.5%. Troponin on admission 0.02-0.13. No acute EKG changes except for LVH and some PVCs. Neurologically intact, except for worsening expressive aphasia. DT OT has signed off. Patient is receiving speech therapy and patient. 2D echo negative for any thromboembolic source.. Continue aspirin, high intensity statin, optimize blood pressure. Plan is to discharge home with outpatient rehab once blood pressure is optimized. (2) Hypertension Is this a current diagnosis for this admission?: Yes Plan: Improving but not optimized. Systolic blood pressure in 200s on admission. Today her blood pressure has been in 140s. Continue Coreg 25 twice daily, lisinopril 10 mg daily. Stop amlodipine. If blood pressure is optimized and patient does not have any worsening of her aphasia will DC home tomorrow. (3) DVT prophylaxis Is this a current diagnosis for this admission?: Yes Plan: Low molecular weight heparin. Encourage ambulation. (4) Obesity (BMI 35.0-39.9 without comorbidity) Is this a current diagnosis for this admission?: Yes Plan: Diet and lifestyle modification.
[2018-09-09] MEDS: ATORVASTATIN CALCIUM 40 MG TABLET PO SCH (21:16)
[2018-09-10 05:34] LABS: ABSOLUTE BASOPHILS # (AUTO) 0.1 10^3/uL (0.0-0.2); ABSOLUTE EOSINOPHILS # (AUTO) 0.2 10^3/uL (0.0-0.6); ABSOLUTE LYMPHOCYTES (AUTO) 1.9 10^3/uL (0.5-4.7); ABSOLUTE MONOCYTES (AUTO) 0.7 10^3/uL (0.1-1.4); ABSOLUTE NEUT (AUTO) 5.8 10^3/uL (1.7-8.2); BASOPHILS % (AUTO) 1.3 % (0-2); EOSINOPHILS % (AUTO) 1.8 % (0-6); HEMATOCRIT 36.9 % (36.0-47.0); HEMOGLOBIN 12.6 g/dL (12.0-15.5); LYMPHOCYTES % (AUTO) 21.5 % (13-45); MEAN CORPUSCULAR HGB CONC 34.3 g/dL (32.0-36.0); MEAN CORPUSCULAR VOLUME 82 fl (80-97); MONOCYTES % (AUTO) 8.5 % (3-13); PLATELET COUNT 242 10^3/uL (150-450); RED BLOOD COUNT 4.51 10^6/uL (3.72-5.28); RED CELL DISTRIBUTION WIDTH 14.2 % (11.5-14.0); SEGMENTED NEUTROPHILS % (AUTO) 66.9 % (42-78); TOTAL CELLS COUNTED % (AUTO) 100 %; WHITE BLOOD COUNT 8.6 10^3/uL (4.0-10.5)
--- NOTE | 2018-09-10 09:02 | PDOC PROGRESS REPORT ---
Subjective Progress Note for:: 09/10/18 Subjective:: JON ANTONIO 64-year-old female no past medical history who was brought in by his neighbors for not being able to talk. A brain MRI confirmed the CT finding of left temporal lobe stroke. A 2D echo of the carotids were negative for any hemodynamic stenosis. 09/02/2018. On my encounter patient is comfortably sitting in her bed in no acute distress very pleasant and cooperative with physical examination but unfortunately she has expressive aphasia and all she can say is okay. She denies any pain, fever, chills, nausea, vomiting, diarrhea, constipation, chest pain, shortness of breath. 09/03/2018. No acute events overnight. On my encounter patient is sitting comfortably in her bed very pleasant and cooperative with physical examination. Her aphasia has improved mildly, she was able to write her name and date of the week on the paper. Seems like she has a good understanding of her medical condition unfortunately could not express it due to her expressive aphasia. He denies any fever, chills, nausea, vomiting, diarrhea, constipation. P.o. tolerant having normal bowel and bladder function. She is ambulatory. Her blood pressure still not optimized, started on carvedilol low-dose today and will titrate up as tolerated. 09/04/2018. No acute events overnight. On my encounter patient is sitting in her chair not in any acute distress, very pleasant, very cooperative with physical examination. She has significant improvement of her expressive aphasia but she still cannot hold a conversation just answering in short sentences. She stating that she wants to go home tomorrow because today she does not have a ride to home and she does not feel safe yet to go home. 09/05/2018. No acute events overnight. On my encounter patient is comfortably sitting in her recliner and her aphasia has improved greatly. She is p.o. tolerant ambulatory having normal bowel and bladder movements. She was going to be transferred today to go and live with a friend unfortunately her blood pressure still not optimized. Plan is to discharge her tomorrow if blood pressure is stable. 09/06/2018. No acute events overnight. Patient is still ambulatory and tolerating her p.o. intake she is having normal bowel and bladder function however the nursing staff have noticed that her expressive aphasia is getting worse and she is also having mild right facial droop. On my encounter patient is comfortably sitting in her recliner receiving her speech therapy as per speech therapy she was doing fine but on my observation compared to yesterday she is having difficulty communicating as good as she used to do yesterday. Yesterday she was able to tell me how she was doing where she was and could repeat after me. Today she still does that but takes her a while to repeat and also she is using one word responses. She is denying any fever, chills, nausea , vomiting, diarrhea, constipation, numbness, tingling or any focal neurological deficits. Order new stat CT to rule out a new stroke. 09/07/2018. No acute events overnight. Patient has been ambulating, p.o. tolerant. On my encounter patient is sitting comfortably in her chair however on my physical examination her initiation has not gotten better since yesterday , she still have persistent right facial droop unchanged from yesterday. She still able to repeat words but whenever asked any questions she will not give any answer. She is not able to point to the clock on the wall. CT head and MRI brain was done yesterday which did not show any new strokes except for the evolving left temporal stroke. Her bp has been better controlled with systolic bp of 140s and 150s, afebrile, pulse rate of less than 100, saturating 91% on room air. No labs today however her labs on 09/06/2018 was within normal limits. At this time I do not feel safe for the patient to be sent home. We will plan to transfer patient to inpatient rehab for continuing physical therapy, patient will therapy speech therapy. 09/08/2018. No acute events overnight. Patient sitting comfortably and her chair in no apparent distress, her EKG is unchanged from yesterday, she is able to repeat extremity however when asked about her name she cannot tell me her name. I was able to talk to Dr. Meléndez neurologist [facility] he suggested that she may have had extension of her left temporal infarct. He said he could be safely started on DVT prophylaxis and also another antiplatelet can be added. He suggested he could be started on Plavix and aspirin. He also suggested that blood pressure should not be dropped to less than 130s and less than 140s. Goal is to keep her blood pressure with 130s-150s. 09/09/2018. No acute events overnight. Patient has been ambulatory and p.o. tolerant. On my encounter patient is sitting comfortably in her chair in no apparent distress. Right facial droop has improved slightly however patient is still has moderate aphasia. She is able to point to TV, repeat after me, but not tell me her name. When asked to write her name she cannot write her name either. She basically communicates by shaking her head. She denies any fever, chills, nausea, vomiting, diarrhea or any constipation. [id number]-old female admitted with stroke MRI confirmed CT finding of left temporal lobe stroke. No acute events in the last 24 hours. Patient is comfortably in the bed communicating by signs and gestures. Will to talk. Responding to the commands very well. Currently she is on Plavix 75 mg p.o. daily aspirin 325 mg p.o. daily and DVT prophylaxis with Lovenox. OT PT consult was done. And she is [facility] [place]. Patient still have the right facial droop. Reason For Visit: ACUTE STROKE Physical Exam Vital Signs: Temp Pulse Resp BP Pulse Ox 98.8 F 64 16 150/70 H 97 09/10/18 08:21 09/10/18 08:21 09/10/18 08:21 09/10/18 08:21 09/10/18 08:21 Intake & Output 09/09/18 09/10/18 09/11/18 06:59 06:59 06:59 Intake Total 1147 1278 Balance 1147 1278 Weight 117.6 kg 118.1 kg General appearance: PRESENT: no acute distress, well-developed, well-nourished Head exam: PRESENT: atraumatic, normocephalic Respiratory exam: PRESENT: clear to auscultation osei. ABSENT: rales, rhonchi, wheezes Cardiovascular exam: PRESENT: RRR. ABSENT: diastolic murmur, rubs, systolic murmur GI/Abdominal exam: PRESENT: normal bowel sounds, soft. ABSENT: distended, guarding, mass, organolmegaly, rebound, tenderness Neurological exam: PRESENT: alert, awake, oriented to person, CN II-XII grossly intact, aphasic, other - Expressive aphasia. Psychiatric exam: PRESENT: appropriate affect, normal mood. ABSENT: homicidal ideation, suicidal ideation Results Laboratory Results: 09/10/18 04:34 09/09/18 12:55 09/09/18 09/10/18 12:55 04:34 WBC 8.6 RBC 4.51 Hgb 12.6 Hct 36.9 MCV 82 MCH 28.0 MCHC 34.3 RDW 14.2 H Plt Count 242 Seg Neutrophils % 66.9 Lymphocytes % 21.5 Monocytes % 8.5 Eosinophils % 1.8 Basophils % 1.3 Absolute Neutrophils 5.8 Absolute Lymphocytes 1.9 Absolute Monocytes 0.7 Absolute Eosinophils 0.2 Absolute Basophils 0.1 Sodium 142.4 Potassium 4.3 Chloride 102 Carbon Dioxide 28 Anion Gap 12 BUN 19 Creatinine 0.58 Est GFR ( Amer) > 60 Est GFR (Non-Af Amer) > 60 Glucose 88 Calcium 9.6 09/02/18 09/02/18 09/02/18 02:15 07:46 14:10 Troponin I 0.020 0.018 0.013 Impressions: Chest X-Ray 09/01/18 20:04 IMPRESSION: NO ACUTE RADIOGRAPHIC FINDING IN THE CHEST. Carotid Doppler Study 09/02/18 00:00 IMPRESSION: 1. NO HEMODYNAMICALLY SIGNIFICANT STENOSIS. Head CT 09/06/18 00:00 IMPRESSION: Slight interval increase in left frontal MCA territory hypodensity , findings in keeping with evolving infarction seen on prior CT and MRI. There is no evidence of hemorrhagic conversion or significant mass effect. MRI may be used to more sensitively evaluate for acutely superimposed or recurrent infarction if indicated by clinical concern. EVIDENCE OF ACUTE STROKE: NO. Head MRI 09/06/18 00:00 IMPRESSION: There is redemonstrated diffusion restriction of the left frontal MCA territory, with increased diffusion restriction of the subcortical hemispheric white matter compared to prior examination, findings likely reflecting penumbral evolution of known acute infarct. Cortical involvement is unchanged. There are no new foci of diffusion restriction. No evidence of hemorrhagic conversion or significant mass effect related to edema. EVIDENCE OF ACUTE STROKE: YES. LEFT MCA Assessment & Plan - Diagnosis (1) Acute ischemic stroke Is this a current diagnosis for this admission?: Yes Plan: Left temporal lobe acute ischemic his stroke likely due to underlying uncontrolled hypertension. Right facial droop mild improvement persistent expressive and receptive aphasia with apraxia otherwise no focal deficits. Patient is ambulatory, p.o. tolerant , having normal bladder and bowel function. Plan is to transfer close monitoring of pressure and continuation of PT ST OT. Continue DAPT, high intensity statin, optimize blood pressure. Goal of systolic blood pressure 130-150. Continue carvedilol 25 mg p.o. twice daily, lisinopril 40 mg p.o. daily. Increase amlodipine from 2.5-5 mg p.o. daily. Continue labetalol IV as needed. 09/08/2018 I was able to talk to Dr. Meléndez neurologist [facility] he suggested that she may have had extension of her left temporal infarct. He said he could be safely started on DVT prophylaxis and also another antiplatelet can be added. He suggested he could be started on Plavix and aspirin. He also suggested to keep systolic blood pressure between 130-150. 09/06/2018 CT head slight interval increase in left frontal MCA territory hypodensity findings in keeping with evolving infarction. 09/06/2018. MRI of head redemonstrated diffusion restriction of the left frontal MCA territory with increased diffusion restriction in the subcortical hemispheric white matter compared to prior examination findings likely reflecting for normal evolution of known acute infarct. There are no new foci of diffusion restriction. No evidence of hemorrhagic conversion or significant mass-effect related to the edema. 09/02/2018. Brain MRI diffusion weighted images are positive for small cortical and subcortical white matter infarct in the left. 09/01/2018. Head CT small hypoattenuating area of the left frontal lobe concerning for acute infarct. 09/02/2018. Carotid Doppler no hemodynamically significant stenosis. A1c on admission is 5.5%. Troponin on admission 0.02-0.13. No acute EKG changes except for LVH and some PVCs. 2D echo negative for any thromboembolic source. 09/10/2018-patient has ischemic stroke involving the left temporal lobe. We are in touch with neurologist and widened. As per the recommendations patient is on statins, aspirin, Plavix, and DVT prophylaxis. We managing the blood pressures systolic between 130-150s. Blood pressure is 149/71. Patient is on carvedilol 25 mg p.o. diet twice daily lisinopril 40 mg daily and amlodipine 5 mg daily. To increase the amlodipine to 10 mg p.o. daily. Patient is ambulatory able to take the p.o. medications p.o. tolerant. Had normal bowel and bladder function. Waiting for the placement. (2) Hypertension Is this a current diagnosis for this admission?: Yes Plan: Improving but not optimized. Vitals: Systolic blood pressure 146-175, T 97.3-99.1, pulse 66-73, respiratory rate 16-22, SPO2 100% on RA Continue carvedilol 25 mg p.o. twice daily, lisinopril 40 mg p.o. daily, increase amlodipine to 5 mg p.o. daily. Continue labetalol IV as needed. Goal of systolic blood pressure 130-150 2D echo negative for any thromboembolic source. 09/08/2013 as per my conversation with 's recommendation neurologist from [facility] goal of systolic blood pressure is 132 150. -his blood pressure today is 149/71. He is on lisinopril 40 mg p.o. daily, Coreg 25 mg p.o. twice daily, amlodipine 5 mg p.o. daily I increased amlodipine to 10 mg p.o. daily. (3) DVT prophylaxis Is this a current diagnosis for this admission?: Yes Plan: 09/10/2018-patient is on Lovenox 40 mg subcu daily. (4) Obesity (BMI 35.0-39.9 without comorbidity) Is this a current diagnosis for this admission?: Yes Plan: 09/10/2018 patient's BMI is more than 40. Diet exercise weight loss advised. Dietary consult was requested. - Time Time Spent with patient: 15-24 minutes Medications reviewed and adjusted accordingly: Yes Anticipated discharge: [facility]
[2018-09-10] MEDS: CLOPIDOGREL BISULFATE 75 MG TABLET PO SCH (09:55)
[2018-09-10] MEDS: ASPIRIN 81 MG TABLET, ENT COATED PO SCH (09:55)
[2018-09-10] MEDS: MULTIVITAMINS W-IRON TABLET, CHEWABLE PO SCH (09:55)
[2018-09-10] MEDS: CARVEDILOL 12.5 MG TABLET PO SCH ×2 (09:56→21:38)
[2018-09-10] MEDS: ENOXAPARIN SODIUM INJ 40 MG/0.4 ML DISP.SYRIN SUBCUT SCH (09:56)
[2018-09-10] MEDS: LISINOPRIL 10 MG TABLET PO SCH (09:56)
[2018-09-10] MEDS ORDERED: (PENDING PHARMACY ID) (Multivitamin/Iron/Folic Acid [Centrum Adults Tablet] 1 TAB) PO SCH (10:00)
[2018-09-10] MEDS ORDERED: AMLODIPINE BESYLATE 2.5 MG TABLET PO SCH ×2 (10:00)
[2018-09-10 10:39] LABS: ALANINE AMINOTRANSFERASE 35 U/L (9-52); ALBUMIN 3.2 g/dL (3.5-5.0); ALKALINE PHOSPHATASE 68 U/L (38-126); ANION GAP 9 (5-19); ASPARTATE AMINO TRANSFERASE 19 U/L (14-36); BILIRUBIN,DIRECT 0.2 mg/dL (0.0-0.4); BILIRUBIN,TOTAL 0.6 mg/dL (0.2-1.3); BLOOD UREA NITROGEN 18 mg/dL (7-20); CALCIUM 9.2 mg/dL (8.4-10.2); CARBON DIOXIDE 26 mmol/L (22-30); CHLORIDE 107 mmol/L (98-107); GLUCOSE 114 mg/dL (75-110); POTASSIUM 4.5 mmol/L (3.6-5.0); TOTAL PROTEIN 5.8 g/dL (6.3-8.2)
[2018-09-10] MEDS: ATORVASTATIN CALCIUM 40 MG TABLET PO SCH (21:38)
[2018-09-10] MEDS: AMLODIPINE BESYLATE 10 MG TABLET PO SCH (21:38)
--- NOTE | 2018-09-11 08:50 | PDOC PROGRESS REPORT ---
Subjective Progress Note for:: 09/11/18 Subjective:: JON ANTONIO 64-year-old female no past medical history who was brought in by his neighbors for not being able to talk. A brain MRI confirmed the CT finding of left temporal lobe stroke. A 2D echo of the carotids were negative for any hemodynamic stenosis. 09/02/2018. On my encounter patient is comfortably sitting in her bed in no acute distress very pleasant and cooperative with physical examination but unfortunately she has expressive aphasia and all she can say is okay. She denies any pain, fever, chills, nausea, vomiting, diarrhea, constipation, chest pain, shortness of breath. 09/03/2018. No acute events overnight. On my encounter patient is sitting comfortably in her bed very pleasant and cooperative with physical examination. Her aphasia has improved mildly, she was able to write her name and date of the week on the paper. Seems like she has a good understanding of her medical condition unfortunately could not express it due to her expressive aphasia. He denies any fever, chills, nausea, vomiting, diarrhea, constipation. P.o. tolerant having normal bowel and bladder function. She is ambulatory. Her blood pressure still not optimized, started on carvedilol low-dose today and will titrate up as tolerated. 09/04/2018. No acute events overnight. On my encounter patient is sitting in her chair not in any acute distress, very pleasant, very cooperative with physical examination. She has significant improvement of her expressive aphasia but she still cannot hold a conversation just answering in short sentences. She stating that she wants to go home tomorrow because today she does not have a ride to home and she does not feel safe yet to go home. 09/05/2018. No acute events overnight. On my encounter patient is comfortably sitting in her recliner and her aphasia has improved greatly. She is p.o. tolerant ambulatory having normal bowel and bladder movements. She was going to be transferred today to go and live with a friend unfortunately her blood pressure still not optimized. Plan is to discharge her tomorrow if blood pressure is stable. 09/06/2018. No acute events overnight. Patient is still ambulatory and tolerating her p.o. intake she is having normal bowel and bladder function however the nursing staff have noticed that her expressive aphasia is getting worse and she is also having mild right facial droop. On my encounter patient is comfortably sitting in her recliner receiving her speech therapy as per speech therapy she was doing fine but on my observation compared to yesterday she is having difficulty communicating as good as she used to do yesterday. Yesterday she was able to tell me how she was doing where she was and could repeat after me. Today she still does that but takes her a while to repeat and also she is using one word responses. She is denying any fever, chills, nausea , vomiting, diarrhea, constipation, numbness, tingling or any focal neurological deficits. Order new stat CT to rule out a new stroke. 09/07/2018. No acute events overnight. Patient has been ambulating, p.o. tolerant. On my encounter patient is sitting comfortably in her chair however on my physical examination her initiation has not gotten better since yesterday , she still have persistent right facial droop unchanged from yesterday. She still able to repeat words but whenever asked any questions she will not give any answer. She is not able to point to the clock on the wall. CT head and MRI brain was done yesterday which did not show any new strokes except for the evolving left temporal stroke. Her bp has been better controlled with systolic bp of 140s and 150s, afebrile, pulse rate of less than 100, saturating 91% on room air. No labs today however her labs on 09/06/2018 was within normal limits. At this time I do not feel safe for the patient to be sent home. We will plan to transfer patient to inpatient rehab for continuing physical therapy, patient will therapy speech therapy. 09/08/2018. No acute events overnight. Patient sitting comfortably and her chair in no apparent distress, her EKG is unchanged from yesterday, she is able to repeat extremity however when asked about her name she cannot tell me her name. I was able to talk to Dr. Meléndez neurologist [facility] he suggested that she may have had extension of her left temporal infarct. He said he could be safely started on DVT prophylaxis and also another antiplatelet can be added. He suggested he could be started on Plavix and aspirin. He also suggested that blood pressure should not be dropped to less than 130s and less than 140s. Goal is to keep her blood pressure with 130s-150s. 09/09/2018. No acute events overnight. Patient has been ambulatory and p.o. tolerant. On my encounter patient is sitting comfortably in her chair in no apparent distress. Right facial droop has improved slightly however patient is still has moderate aphasia. She is able to point to TV, repeat after me, but not tell me her name. When asked to write her name she cannot write her name either. She basically communicates by shaking her head. She denies any fever, chills, nausea, vomiting, diarrhea or any constipation. 09/10/[id number]-exqi-old female admitted with stroke MRI confirmed CT finding of left temporal lobe stroke. No acute events in the last 24 hours. Patient is comfortably in the bed communicating by signs and gestures. Will to talk. Responding to the commands very well. Currently she is on Plavix 75 mg p.o. daily aspirin 325 mg p.o. daily and DVT prophylaxis with Lovenox. OT PT consult was done. And she is waiting for placement at [facility] in [place]. Patient still have the right facial droop. 09/11/2018 63 years old female admitted with a stroke confirmed by the MRI. MRI shows left temporal lobe stroke. No acute events in the last 24 hours. Patient comfortably in the chair. Not in distress. Communicating very well with signs and gestures. Responding well to the verbal commands following the commands very well she still have the right facial droop. Denies any problems swallowing denies any problems with urination denies any problems with bowel movement. Waiting for placement Reason For Visit: ACUTE STROKE Physical Exam Vital Signs: Temp Pulse Resp BP Pulse Ox 98.2 F 71 19 159/69 H 97 09/11/18 07:21 09/11/18 07:21 09/11/18 07:21 09/11/18 07:21 09/11/18 07:21 Intake & Output 09/10/18 09/11/18 09/12/18 06:59 06:59 06:59 Intake Total 1278 1250 Balance 1278 1250 Weight 118.1 kg 117.8 kg General appearance: PRESENT: no acute distress Head exam: PRESENT: atraumatic Eye exam: PRESENT: PERRLA Mouth exam: PRESENT: other - Right facial droop is present. Neck exam: ABSENT: carotid bruit, JVD, lymphadenopathy, thyromegaly Cardiovascular exam: PRESENT: RRR. ABSENT: diastolic murmur, rubs, systolic murmur GI/Abdominal exam: PRESENT: normal bowel sounds, soft. ABSENT: distended, guarding, mass, organolmegaly, rebound, tenderness Neurological exam: PRESENT: alert, altered, awake, oriented to person, oriented to place, oriented to time, oriented to situation, CN II-XII grossly intact Psychiatric exam: PRESENT: appropriate affect, normal mood. ABSENT: homicidal ideation, suicidal ideation Results Laboratory Results: 09/10/18 04:34 09/10/18 04:34 09/10/18 04:34 Sodium 142.0 Potassium 4.5 Chloride 107 Carbon Dioxide 26 Anion Gap 9 BUN 18 Creatinine 0.68 Est GFR ( Amer) > 60 Est GFR (Non-Af Amer) > 60 Glucose 114 H Calcium 9.2 Magnesium 2.3 Total Bilirubin 0.6 AST 19 ALT 35 Alkaline Phosphatase 68 Total Protein 5.8 L Albumin 3.2 L 09/02/18 09/02/18 09/02/18 02:15 07:46 14:10 Troponin I 0.020 0.018 0.013 Impressions: Chest X-Ray 09/01/18 20:04 IMPRESSION: NO ACUTE RADIOGRAPHIC FINDING IN THE CHEST. Carotid Doppler Study 09/02/18 00:00 IMPRESSION: 1. NO HEMODYNAMICALLY SIGNIFICANT STENOSIS. Head CT 09/06/18 00:00 IMPRESSION: Slight interval increase in left frontal MCA territory hypodensity , findings in keeping with evolving infarction seen on prior CT and MRI. There is no evidence of hemorrhagic conversion or significant mass effect. MRI may be used to more sensitively evaluate for acutely superimposed or recurrent infarction if indicated by clinical concern. EVIDENCE OF ACUTE STROKE: NO. Head MRI 09/06/18 00:00 IMPRESSION: There is redemonstrated diffusion restriction of the left frontal MCA territory, with increased diffusion restriction of the subcortical hemispheric white matter compared to prior examination, findings likely reflecting penumbral evolution of known acute infarct. Cortical involvement is unchanged. There are no new foci of diffusion restriction. No evidence of hemorrhagic conversion or significant mass effect related to edema. EVIDENCE OF ACUTE STROKE: YES. LEFT MCA Assessment & Plan - Diagnosis (1) Acute ischemic stroke Is this a current diagnosis for this admission?: Yes Plan: Left temporal lobe acute ischemic his stroke likely due to underlying uncontrolled hypertension. Right facial droop mild improvement persistent expressive and receptive aphasia with apraxia otherwise no focal deficits. Patient is ambulatory, p.o. tolerant , having normal bladder and bowel function. Plan is to transfer close monitoring of pressure and continuation of PT ST OT. Continue DAPT, high intensity statin, optimize blood pressure. Goal of systolic blood pressure 130-150. Continue carvedilol 25 mg p.o. twice daily, lisinopril 40 mg p.o. daily. Increase amlodipine from 2.5-5 mg p.o. daily. Continue labetalol IV as needed. 09/08/2018 I was able to talk to Dr. Meléndez neurologist [facility] he suggested that she may have had extension of her left temporal infarct. He said he could be safely started on DVT prophylaxis and also another antiplatelet can be added. He suggested he could be started on Plavix and aspirin. He also suggested to keep systolic blood pressure between 130-150. 09/06/2018 CT head slight interval increase in left frontal MCA territory hypodensity findings in keeping with evolving infarction. 09/06/2018. MRI of head redemonstrated diffusion restriction of the left frontal MCA territory with increased diffusion restriction in the subcortical hemispheric white matter compared to prior examination findings likely reflecting for normal evolution of known acute infarct. There are no new foci of diffusion restriction. No evidence of hemorrhagic conversion or significant mass-effect related to the edema. 09/02/2018. Brain MRI diffusion weighted images are positive for small cortical and subcortical white matter infarct in the left. 09/01/2018. Head CT small hypoattenuating area of the left frontal lobe concerning for acute infarct. 09/02/2018. Carotid Doppler no hemodynamically significant stenosis. A1c on admission is 5.5%. Troponin on admission 0.02-0.13. No acute EKG changes except for LVH and some PVCs. 2D echo negative for any thromboembolic source. 09/10/2018-patient has ischemic stroke involving the left temporal lobe. We are in touch with neurologist As per the recommendations patient is on statins , aspirin, Plavix, and DVT prophylaxis. We managing the blood pressures systolic between 130-150s. Blood pressure is 149/71. Patient is on carvedilol 25 mg p.o. diet twice daily lisinopril 40 mg daily and amlodipine 5 mg daily. To increase the amlodipine to 10 mg p.o. daily. Patient is ambulatory able to take the p.o. medications p.o. tolerant. Had normal bowel and bladder function. Waiting for the placement. 09/11/2018-patient has a temporal lobe stroke. Patient is on aspirin statins Plavix and DVT prophylaxis. Amlodipine was increased to 10 mg p.o. daily yesterday and blood pressure this morning 159/69. I am going to add hydrochlorothiazide 12.5 mg p.o. daily. The neurology recommendation from [facility] is to keep the systolic blood pressure between 130-150. The blood pressure medication she is on right now amlodipine 10 mg p.o. daily lisinopril 40 mg p.o. daily Coreg 25 mg p.o. twice a day. Patient able to tolerate the oral feeds. Denies any problems with urination or bowel movement. Waiting for the placement. (2) Hypertension Is this a current diagnosis for this admission?: Yes Plan: Improving but not optimized. Vitals: Systolic blood pressure 146-175, T 97.3-99.1, pulse 66-73, respiratory rate 16-22, SPO2 100% on RA Continue carvedilol 25 mg p.o. twice daily, lisinopril 40 mg p.o. daily, increase amlodipine to 5 mg p.o. daily. Continue labetalol IV as needed. Goal of systolic blood pressure 130-150 2D echo negative for any thromboembolic source. 09/08/2013 as per my conversation with 's recommendation neurologist from [facility] goal of systolic blood pressure is 132 150. -his blood pressure today is 149/71. He is on lisinopril 40 mg p.o. daily, Coreg 25 mg p.o. twice daily, amlodipine 5 mg p.o. daily I increased amlodipine to 10 mg p.o. daily. 09/11/2018 blood pressure today is 159/69 to add hydrochlorothiazide 12.5 mg p.o. daily to the current regimen. (3) DVT prophylaxis Is this a current diagnosis for this admission?: Yes Plan: 09/10/2018-patient is on Lovenox 40 mg subcu daily. 09/11/2018 patient has ischemic stroke, as per the neurologist recommendations patient is on DVT prophylaxis with Lovenox 40 mg subq daily. (4) Obesity (BMI 35.0-39.9 without comorbidity) Is this a current diagnosis for this admission?: Yes Plan: 09/10/2018 patient's BMI is more than 40. Diet exercise weight loss advised. Dietary consult was requested. 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 - Time Time Spent with patient: 15-24 minutes Medications reviewed and adjusted accordingly: Yes Anticipated discharge: SNF
[2018-09-11] MEDS: MULTIVITAMINS W-IRON TABLET, CHEWABLE PO SCH (09:28)
[2018-09-11] MEDS: ENOXAPARIN SODIUM INJ 40 MG/0.4 ML DISP.SYRIN SUBCUT SCH (09:28)
[2018-09-11] MEDS: CARVEDILOL 12.5 MG TABLET PO SCH ×2 (09:29→21:44)
[2018-09-11] MEDS: LISINOPRIL 10 MG TABLET PO SCH (09:29)
[2018-09-11] MEDS: CLOPIDOGREL BISULFATE 75 MG TABLET PO SCH (09:29)
[2018-09-11] MEDS: ASPIRIN 81 MG TABLET, ENT COATED PO SCH (09:29)
[2018-09-11 09:55] LABS: ABSOLUTE BASOPHILS # (AUTO) 0.1 10^3/uL (0.0-0.2); ABSOLUTE EOSINOPHILS # (AUTO) 0.1 10^3/uL (0.0-0.6); ABSOLUTE LYMPHOCYTES (AUTO) 1.3 10^3/uL (0.5-4.7); ABSOLUTE MONOCYTES (AUTO) 0.7 10^3/uL (0.1-1.4); ABSOLUTE NEUT (AUTO) 5.8 10^3/uL (1.7-8.2); EOSINOPHILS % (AUTO) 1.6 % (0-6); HEMATOCRIT 39.8 % (36.0-47.0); HEMOGLOBIN 13.6 g/dL (12.0-15.5); LYMPHOCYTES % (AUTO) 16.6 % (13-45); MEAN CORPUSCULAR HGB CONC 34.1 g/dL (32.0-36.0); MEAN CORPUSCULAR VOLUME 82 fl (80-97); MONOCYTES % (AUTO) 8.5 % (3-13); PLATELET COUNT 297 10^3/uL (150-450); RED BLOOD COUNT 4.83 10^6/uL (3.72-5.28); SEGMENTED NEUTROPHILS % (AUTO) 72.3 % (42-78); TOTAL CELLS COUNTED % (AUTO) 100 %; WHITE BLOOD COUNT 8.1 10^3/uL (4.0-10.5)
[2018-09-11 10:22] LABS: ALANINE AMINOTRANSFERASE 32 U/L (9-52); ALBUMIN 3.9 g/dL (3.5-5.0); ALKALINE PHOSPHATASE 83 U/L (38-126); ANION GAP 10 (5-19); ASPARTATE AMINO TRANSFERASE 17 U/L (14-36); BILIRUBIN,DIRECT 0.1 mg/dL (0.0-0.4); BILIRUBIN,TOTAL 0.6 mg/dL (0.2-1.3); BLOOD UREA NITROGEN 15 mg/dL (7-20); CALCIUM 9.6 mg/dL (8.4-10.2); CARBON DIOXIDE 30 mmol/L (22-30); CHLORIDE 103 mmol/L (98-107); GLUCOSE 117 mg/dL (75-110); POTASSIUM 4.3 mmol/L (3.6-5.0); SODIUM 142.8 mmol/L (137-145); TOTAL PROTEIN 6.3 g/dL (6.3-8.2)
[2018-09-11] MEDS ORDERED: HYDROCHLOROTHIAZIDE 12.5 MG TABLET PO ONE (11:30)
[2018-09-11 21:25] LABS: HEMATOCRIT 39.5 % (36.0-47.0); HEMOGLOBIN 13.4 g/dL (12.0-15.5); MEAN CORPUSCULAR HEMOGLOBIN 27.8 pg (27.0-33.4); MEAN CORPUSCULAR HGB CONC 34.1 g/dL (32.0-36.0); MEAN CORPUSCULAR VOLUME 82 fl (80-97); PLATELET COUNT 262 10^3/uL (150-450); RED BLOOD COUNT 4.83 10^6/uL (3.72-5.28); WHITE BLOOD COUNT 8.5 10^3/uL (4.0-10.5)
[2018-09-11] MEDS: AMLODIPINE BESYLATE 10 MG TABLET PO SCH (21:44)
[2018-09-11] MEDS: ATORVASTATIN CALCIUM 40 MG TABLET PO SCH (21:50)
[2018-09-12] MEDS ORDERED: HYDROCHLOROTHIAZIDE 12.5 MG TABLET PO SCH ×2 (08:00)
[2018-09-12] MEDS: LISINOPRIL 10 MG TABLET PO SCH (09:12)
[2018-09-12] MEDS: CARVEDILOL 12.5 MG TABLET PO SCH (09:12)
[2018-09-12] MEDS: ENOXAPARIN SODIUM INJ 40 MG/0.4 ML DISP.SYRIN SUBCUT SCH (09:13)
[2018-09-12] MEDS: MULTIVITAMINS W-IRON TABLET, CHEWABLE PO SCH (09:13)
[2018-09-12] MEDS: ASPIRIN 81 MG TABLET, ENT COATED PO SCH (09:13)
[2018-09-12] MEDS: CLOPIDOGREL BISULFATE 75 MG TABLET PO SCH (09:13)
[2018-09-12 13:19] VITALS: BP 172/96
--- NOTE | 2018-09-12 15:18 | PDOC DISCHARGE SUMMARY ---
General - Admit/Disc Date/PCP Admission Date/Primary Care Provider: 09/01/18 21:24 Discharge Date: 09/12/18 - Discharge Diagnosis (1) Acute ischemic stroke Is this a current diagnosis for this admission?: Yes Summary: 09/12/[id number]-xgbu-old female with no past medical history brought in by [facility] first for being not able to talk MRI of the brain done it confirmed that she had a left temporal lobe stroke. Stroke core measures implemented. Patient was on aspirin Plavix statins and DVT prophylaxis. PT OT consult was requested. I discussed the care with Dr. Sagar Squires as per recommended he is recommendations patient need only outpatient speech therapy. Patient has no problem with swallowing no problem with urination no problems with bowel movements. Patient has expressive aphasia speech therapy is working with the patient. Other than expressive aphasia patient has no other neurological deficits cranial nerves are intact. Able to walk without any problems. As per the neuro recommendations we are managing the systolic blood pressures between 130-150s. Patient has a good family support at home. (2) Hypertension Is this a current diagnosis for this admission?: Yes Summary: Vitals: Systolic blood pressure 146-175, T 97.3-99.1, pulse 66-73, respiratory rate 16-22, SPO2 100% on RA Continue carvedilol 25 mg p.o. twice daily, lisinopril 40 mg p.o. daily, increase amlodipine to 5 mg p.o. daily. Continue labetalol IV as needed. Goal of systolic blood pressure 130-150 2D echo negative for any thromboembolic source. 09/08/2013 as per my conversation with 's recommendation neurologist from [facility] goal of systolic blood pressure is 132 150. -his blood pressure today is 149/71. He is on lisinopril 40 mg p.o. daily, Coreg 25 mg p.o. twice daily, amlodipine 5 mg p.o. daily I increased amlodipine to 10 mg p.o. daily. 09/11/2018 blood pressure today is 159/69 to add hydrochlorothiazide 12.5 mg p.o. daily to the current regimen. 09/12/2018-patient blood pressure today is 120/63 stable pulse rate is 66 stable patient is on lisinopril 40 mg p.o. daily, Coreg 25 mg p.o. twice a day amlodipine 10 mg daily started on hydrochlorothiazide 2012.5 mg p.o. daily. (3) DVT prophylaxis Is this a current diagnosis for this admission?: Yes Summary: 09/12/2018 patient on DVT prophylaxis with Lovenox 40 mg subcu daily. (4) Obesity (BMI 35.0-39.9 without comorbidity) Is this a current diagnosis for this admission?: Yes Summary: 09/12/2018 patient's BMI is more than 35 diet and exercise weight loss was advised. - Additional Information Discharge Diet: As Tolerated, Cardiac Discharge Activity: Activity As Tolerated, No Driving Prescriptions: Amlodipine Besylate [Norvasc 10 mg Tablet] 10 mg PO QHS 30 Days #30 tablet Aspirin [Ecotrin 81 mg EC Tablet] 81 mg PO DAILY 30 Days #30 tabec Atorvastatin Calcium [Lipitor 40 mg Tablet] 40 mg PO QHS 30 Days #30 tablet Atorvastatin Calcium [Lipitor 40 mg Tablet] 40 mg PO QHS #30 tablet Carvedilol [Coreg 12.5 mg Tablet] 25 mg PO Q12 30 Days #30 tablet Clopidogrel Bisulfate [Plavix 75 mg Tablet] 75 mg PO DAILY #30 tablet Hydrochlorothiazide [Hydrodiuril 12.5 mg Tablet] 12.5 mg PO QAM #30 tablet Lisinopril [Prinivil 10 mg Tablet] 40 mg PO DAILY 30 Days #30 tablet Lisinopril [Prinivil 5 mg Tablet] 10 mg PO DAILY 30 Days #30 tablet Home Medications: Multivitamin/Iron/Folic Acid [Centrum Adults Tablet] 1 tab PO DAILY 09/02/18 Aspirin [Ecotrin 81 mg EC Tablet] 81 mg PO DAILY 30 Days #30 tabec 09/05/18 Atorvastatin Calcium [Lipitor 40 mg Tablet] 40 mg PO QHS 30 Days #30 tablet 03/18 Carvedilol [Coreg 12.5 mg Tablet] 25 mg PO Q12 30 Days #30 tablet 09/05/18 Lisinopril [Prinivil 5 mg Tablet] 10 mg PO DAILY 30 Days #30 tablet 09/05/18 Amlodipine Besylate [Norvasc 10 mg Tablet] 10 mg PO QHS 30 Days #30 tablet 09/12 Atorvastatin Calcium [Lipitor 40 mg Tablet] 40 mg PO QHS #30 tablet 09/12/18 Clopidogrel Bisulfate [Plavix 75 mg Tablet] 75 mg PO DAILY #30 tablet 09/12/18 Hydrochlorothiazide [Hydrodiuril 12.5 mg Tablet] 12.5 mg PO QAM #30 tablet 09/12 Lisinopril [Prinivil 10 mg Tablet] 40 mg PO DAILY 30 Days #30 tablet 09/12/18 History of Present Illness History of Present Illness: JON ANTONIO is a 63 year old female with no known medical conditions. Friend is at the bedside is the one giving me the information was the patient is unable to talk. Last time her friend spoke with her over the phone was last Sunday and the patient was at her regular state of health. Today friend called back and to all questions the patient was answering "ok", so she decided to call the [employer] department for a welfare check, when police arrived to her house she was answering all questions with the same word "ok", was decided to call EMS. Patient is ambulatory but unable to speak, follows commands and is evident that she can understand. Denies weakness, tingling or numbness on any extremity, denies vision problems, apparently patient has not been having any problems swallowing. Denies any history of a stroke in the past. Patient has been to a doctor a few months ago for an episode of acute bronchitis and she has been told that her blood pressure was high, upon arrival to our facility blood pressure was 205/95. The emergencyst stated that the patient has also receptive aphasia and had some difficulty with complex commands but to me she has been following every command properly and besides her frustration she feels to been unable to talk I did not find any receptive aphasia. CT scan of the head shows a stroke on the left frontal lobe. Patient will receive a dose of aspirin. Hospital Course Hospital Course: 63-year-old female admitted with difficulty in talking MRI confirmed the CT findings of left temporal lobe stroke patient has expressive aphasia no other neurological deficits. Stroke core measures implemented. No complications during the hospital stay. She is going to go home on home outpatient speech therapy. As per physical therapy team patient does not need any acute rehab. Physical Exam Vital Signs: Temp Pulse Resp BP Pulse Ox 98.6 F 73 16 172/96 H 99 09/12/18 13:16 09/12/18 13:16 09/12/18 13:16 09/12/18 13:16 09/12/18 13:16 Intake & Output 09/11/18 09/12/18 09/13/18 06:59 06:59 06:59 Intake Total 1250 828 414 Output Total 0 Balance 1250 828 414 Weight 117.8 kg 114.8 kg General appearance: PRESENT: no acute distress Head exam: PRESENT: atraumatic Eye exam: PRESENT: PERRLA Neck exam: ABSENT: carotid bruit, JVD, lymphadenopathy, thyromegaly Respiratory exam: PRESENT: clear to auscultation osei. ABSENT: rales, rhonchi, wheezes Cardiovascular exam: PRESENT: RRR. ABSENT: diastolic murmur, rubs, systolic murmur GI/Abdominal exam: PRESENT: normal bowel sounds, soft. ABSENT: distended, guarding, mass, organolmegaly, rebound, tenderness Neurological exam: PRESENT: aphasic, other Psychiatric exam: PRESENT: appropriate affect, normal mood. ABSENT: homicidal ideation, suicidal ideation Results Laboratory Results: 09/11/18 21:15 09/11/18 09:28 09/11/18 21:15 WBC 8.5 RBC 4.83 Hgb 13.4 Hct 39.5 MCV 82 MCH 27.8 MCHC 34.1 RDW 14.0 Plt Count 262 09/02/18 09/02/18 09/02/18 02:15 07:46 14:10 Troponin I 0.020 0.018 0.013 Impressions: Chest X-Ray 09/01/18 20:04 IMPRESSION: NO ACUTE RADIOGRAPHIC FINDING IN THE CHEST. Carotid Doppler Study 09/02/18 00:00 IMPRESSION: 1. NO HEMODYNAMICALLY SIGNIFICANT STENOSIS. Head CT 09/06/18 00:00 IMPRESSION: Slight interval increase in left frontal MCA territory hypodensity , findings in keeping with evolving infarction seen on prior CT and MRI. There is no evidence of hemorrhagic conversion or significant mass effect. MRI may be used to more sensitively evaluate for acutely superimposed or recurrent infarction if indicated by clinical concern. EVIDENCE OF ACUTE STROKE: NO. Head MRI 09/06/18 00:00 IMPRESSION: There is redemonstrated diffusion restriction of the left frontal MCA territory, with increased diffusion restriction of the subcortical hemispheric white matter compared to prior examination, findings likely reflecting penumbral evolution of known acute infarct. Cortical involvement is unchanged. There are no new foci of diffusion restriction. No evidence of hemorrhagic conversion or significant mass effect related to edema. EVIDENCE OF ACUTE STROKE: YES. LEFT MCA Qualifiers - * PATIENT BEING DISCHARGED WITH ANY OF THE FOLLOWING DIAGNOSIS: Stroke VTE patient discharged on overlapping Therapy?: Yes Stroke Pt being discharged on Anti-thrombolytic therapy?: Yes Stroke Pt being discharged on Anti-coagulation therapy?: Yes Stroke Pt being discharged on Statins?: Yes CO Pt being discharged on Statins?: Yes CO Pt discharged ACEI/ARBS?: Yes HF Pt being discharged on ACEI for LVEF less than 40%?: No Reason(s) for not prescribing ACEI:: Not indicated HF Pt being discharged on ARBS for LVEF less than 40%?: No Reason(s) for not prescribing ARBS:: Not indicated HF Pt with Afib discharged with Warfarin?: No Reason(s) for not prescribing Warfarin:: Not indicated HF Pt discharged on evidence-based Beta Renetta:: No Reason(s) for not prescribing evidence-based Beta Renetta:: Not indicated
[2018-09-12] MEDS ORDERED: ATORVASTATIN CALCIUM 40 MG TABLET PO SCH (22:00)
== END 2018-09-12 14:15 | disposition home or self-care (01) | DRG 65 ==
LOC: ER 19:23 → EH 21:24 → 3W 23:42
PROVIDERS: ADMIT Internal Medicine; ATTEND Internal Medicine
DX: I63.412 Cerebral infarction due to embolism of left middle cerebral artery (principal); Z68.41 Body mass index [BMI] 40.0-44.9, adult; I10 Essential (primary) hypertension; E66.9 Obesity, unspecified; I49.3 Ventricular premature depolarization; R29.810 Facial weakness; R47.01 Aphasia; Z60.2 Problems related to living alone; Z79.899 Other long term (current) drug therapy; Z80.9 Family history of malignant neoplasm, unspecified
CPT/HCPCS: 36415; 70450; 70551; 71045; 80048; 80053; 80061; 81001; 82550; 82803; 82962; 83036; 83605; 83735; 84484; 85025; 85027; 85610; 85730; 93005; 93010; 93306; 93880; 99285; J1650; J3490; J7030; S0164